=== PATIENT | female | born 1955 | race Caucasian/White ===

== ENCOUNTER 2017-06-01 08:01 | Outpatient (CLI) | payer OTHER | END 2017-06-01 08:02 | disposition home or self-care (01) | LOC: BICCT 08:01 | PROVIDERS: ATTEND Internal Medicine Geriatric Medicine | DX: Q60.0 Renal agenesis, unilateral (principal); N28.89 Other specified disorders of kidney and ureter; D35.01 Benign neoplasm of right adrenal gland | CPT/HCPCS: 74176 ==

== ENCOUNTER 2017-06-28 10:55 | Outpatient (CLI) | payer OTHER | END 2017-06-28 10:56 | disposition home or self-care (01) | LOC: BICMAMMO 10:55 | PROVIDERS: ATTEND Internal Medicine Geriatric Medicine | DX: Z12.31 Encounter for screening mammogram for malignant neoplasm of breast (principal) | CPT/HCPCS: 77063; 77067 ==

== ENCOUNTER 2017-07-05 19:30 | Outpatient (CLI) | payer OTHER | END 2017-07-05 19:31 | disposition home or self-care (01) | LOC: SLEEPLAB 19:30 | PROVIDERS: ATTEND Internal Medicine Geriatric Medicine | DX: G47.33 Obstructive sleep apnea (adult) (pediatric) (principal); E66.9 Obesity, unspecified; I10 Essential (primary) hypertension | CPT/HCPCS: 95810 ==

== ENCOUNTER 2018-10-12 13:44 | Outpatient (CLI) | payer OTHER ==
--- NOTE | 2018-10-12 14:14 | MMO ---
Bilateral MAMMO Bilat Screen [facility]. CLINICAL HISTORY: Patient is 62 years old and is seen for screening. The patient has no family history of breast cancer. The patient has no personal history of cancer. VIEWS: The views performed were: bilateral craniocaudal with tomosynthesis and bilateral mediolateral oblique with tomosynthesis. FILMS COMPARED: The present examination has been compared to prior imaging studies performed at [facility] on 06/28/2017, and at [facility] on 01/12/2007, 02/07/2009 and 10/09/2012. MAMMOGRAM FINDINGS: There are scattered fibroglandular densities. There are no suspicious masses, suspicious calcifications, or new areas of architectural distortion. IMPRESSION: THERE IS NO MAMMOGRAPHIC EVIDENCE OF MALIGNANCY. A ROUTINE FOLLOW-UP MAMMOGRAM IN 1 YEAR IS RECOMMENDED. THE RESULTS OF THIS EXAM WERE SENT TO THE PATIENT. ACR BI-RADS Category 1 - Negative MAMMOGRAPHY NOTE: 1. A negative mammogram report should not delay a biopsy if a dominant of clinically suspicious mass is present. 2. Approximately 10% to 15% of breast cancers are not detected by mammography. 3. Adenosis and dense breasts may obscure an underlying neoplasm.
== END 2018-10-12 13:45 | disposition home or self-care (01) ==
LOC: BICMAMMO 13:44
PROVIDERS: ATTEND Internal Medicine Geriatric Medicine
DX: Z12.31 Encounter for screening mammogram for malignant neoplasm of breast (principal)
CPT/HCPCS: 77063; 77067

== ENCOUNTER 2020-03-04 14:53 | Emergency (ER) | payer OTHER ==
[2020-03-04 18:04] LABS: #Basophils 0.1 thou/uL (0.0-0.2); #Eosinphils 0.1 thou/uL (0.0-0.7); #Lymphocytes 1.8 thou/uL (1.20-3.40); #Monocytes 0.8 thou/uL (0.11-0.59); #Neutrophils 4.3 thou/uL (1.40-6.50); %Basophils 0.8 % (0.0-1.0); %Eosinophils 1.9 % (0.0-10.0); %Lymphocytes 25.3 % (21.0-51.0); Hemoglobin 11.5 g/dL (12.0-16.0); Mean Corpuscular HGB CONC 32.7 g/dL (32.0-36.0); Mean Corpuscular Hemoglobin 30.4 pg (27.0-31.0); Mean Platelet Volume 7.2 fL (7.4-10.4); Platelet Count 386 thou/uL (130-400); RBC Distribution Width 11.6 % (11.5-14.5); Red Blood Cell (RBC) Count 3.78 mill/uL (4.20-5.40); White Blood Cell (WBC) Count 7.1 thou/uL (4.8-10.8)
[2020-03-04 18:25] LABS: ALT (SGPT) 14 U/L (8-55); AST (SGOT) 14 U/L (5-34); Albumin 3.2 g/dL (3.4-4.8); Alkaline Phosphatase 121 U/L (40-110); Anion Gap 12 mmol/L (10-20); BUN (Urea Nitrogen) 7 mg/dL (9.8-20.1); Bilirubin, Total 0.2 mg/dL (0.2-1.2); Calc. Creatinine Clearance 0 mL/min (70-130); Calcium 8.6 mg/dL (7.8-10.44); Carbon Dioxide 28 mmol/L (23-31); Chloride 101 mmol/L (98-107); Estimated GFR-MDRD 63; Globulin 3.6 g/dL (2.4-3.5); Glucose 106 mg/dL (80-115); Protein, Total 6.8 g/dL (6.0-8.3); Sodium 138 mmol/L (136-145)
[2020-03-04 18:30] LABS: Potassium 2.8 mmol/L (3.5-5.1)
[2020-03-04] MEDS ORDERED: Potassium Chloride 20 MEQ TAB ONE (18:45)
--- NOTE | 2020-03-04 20:00 | RAD ---
LEFT ANKLE THREE VIEWS: 03/04/20 HISTORY: Left ankle pain and swelling and redness. FINDINGS/IMPRESSION: The ankle mortise is maintained. Soft tissue swelling is present. No fracture, dislocation, or bony d estruction identified. A small plantar calcaneal spur is present. POS: MZA
--- NOTE | 2020-03-04 20:02 | RAD ---
RIGHT FOOT THREE VIEWS: 03/04/20 HISTORY: Right big toe swelling and pain and redness. FINDINGS/IMPRESSION: No fracture or dislocation is seen. There is soft tissue swelling in the right great toe. A focal hyp odensity at the medial base of the proximal phalanx of the great toe is suspicious for an erosion. Po ssibility of osteomyelitis should be considered. POS: LENA
== END 2020-03-04 18:59 | disposition home or self-care (01) ==
LOC: ERS 14:53
DX: M25.472 Effusion, left ankle (principal); M79.674 Pain in right toe(s); E87.6 Hypokalemia; I10 Essential (primary) hypertension; F32.9 Major depressive disorder, single episode, unspecified; Z79.899 Other long term (current) drug therapy
CPT/HCPCS: 36415; 80053; 84550; 85025; 93005

== ENCOUNTER 2020-04-21 14:25 | Inpatient (IN) | payer MEDICARE, OTHER ==
[2020-04-21] MEDS ORDERED: Fentanyl 100 MCG/2 ML VIAL ONE ×3 (14:48→21:13)
[2020-04-21] MEDS ORDERED: Acetaminophen 500 MG TAB ONE (14:49)
[2020-04-21] MEDS ORDERED: Ondansetron PF 4 MG/2 ML Vial ONE ×3 (14:50→21:13)
[2020-04-21 15:58] LABS: Hemoglobin 9.1 g/dL (12.0-16.0); Mean Corpuscular HGB CONC 31.4 g/dL (32.0-36.0); Mean Corpuscular Volume 92.4 fL (78.0-98.0); Mean Platelet Volume 7.9 fL (7.4-10.4); Platelet Count 307 thou/uL (130-400); RBC Distribution Width 14.9 % (11.5-14.5); Red Blood Cell (RBC) Count 3.15 mill/uL (4.20-5.40); White Blood Cell (WBC) Count 8.6 thou/uL (4.8-10.8)
[2020-04-21 16:15] LABS: Band 9 % (5-11); Lymphocytes 24 % (21-51); MDiff Complete? YES; Monocytes 16 % (0-10); Neutrophil 51 % (42-75); Platelet Morphology Comment Appears Adequate; Polychromasia SLIGHT = 2-3 cells (100X) (0-2/hpf)
[2020-04-21 16:20] LABS: ALT (SGPT) 8 U/L (8-55); AST (SGOT) 9 U/L (5-34); Albumin 2.6 g/dL (3.4-4.8); Alkaline Phosphatase 103 U/L (40-110); Anion Gap 14 mmol/L (10-20); BUN (Urea Nitrogen) 12 mg/dL (9.8-20.1); Bilirubin, Total 0.4 mg/dL (0.2-1.2); Calc. Creatinine Clearance 0 mL/min (70-130); Calcium 7.9 mg/dL (7.8-10.44); Carbon Dioxide 22 mmol/L (23-31); Chloride 103 mmol/L (98-107); Globulin 3.1 g/dL (2.4-3.5); Glucose 108 mg/dL (80-115); Potassium 4.3 mmol/L (3.5-5.1); Protein, Total 5.7 g/dL (6.0-8.3); Sodium 135 mmol/L (136-145)
[2020-04-21] MEDS ORDERED: Ondansetron PF 4 MG/2 ML Vial IVP PRN (21:15)
[2020-04-21] MEDS ORDERED: Sodium Chloride 0.9% 1,000 ML IV SCH (21:15)
[2020-04-21] MEDS ORDERED: Ondansetron ODT 4 MG TAB SL PRN (21:15)
[2020-04-21] MEDS: Fentanyl 100 MCG/2 ML VIAL SLOW IVP PRN (21:20)
[2020-04-21] MEDS ORDERED: Piperacillin/Tazobactam 3.375 GM in Sodium Chloride 0.9% 100 ML IVPB SCH (22:00)
[2020-04-21] MEDS ORDERED: Acetaminophen 325 MG TAB PO PRN (22:14)
[2020-04-21] MEDS ORDERED: Acetaminophen 650 MG Suppository PR PRN (22:14)
--- NOTE | 2020-04-21 22:39 | PDOC.HHP ---
Hospitalist HPI - History of Present Illness pain on the feet, gi bleeding History of Present Illness: Case of an 64y/o female with a pmhx of hth who comes to hospital due to b/l leg pain and gi bleeding. most of the history is given by patient was in distress and was given pain management and now feels she cant answer questions. states that abount 5-6 months ago patient started with symptoms of pain on the legs and gi bleeding. at that time they had a visit to the ED and patient was diagnosed with colitis and gout and discharge home to f/u with pcp and gi as opd. patient is schedule to have a colonoscopy on 2019. states that since then patient symptoms have continued to progress and got worse, what initialled as a red dot expanded to a blister sometimes filled with blood and then pop and became an ulcer. this has happened in both legs and is causing severe pain. also reports that patient has continued with gi bleeding which is bright red blood, any food ingestion causes to go to the bathroom wich has streaks of blood. they report low grade fevers, no nausea no vomiting no cough or dysuria. Hospitalist ROS - Review of Systems All other systems reviewed; all pertinent +/- noted in HPI/Subj - Medication Medications: Active Medications Generic Name Dose Route Start Last Admin Trade Name Freq PRN Reason Stop Dose Admin Fentanyl 50 mcg 04/21/20 21:05 04/21/20 21:20 Fentanyl 100 Mcg/2 Ml Vial SLOW IVP 04/22/20 05:33 50 mcg Q2H PRN Administration Severe Pain (7-10) Ondansetron HCl 4 mg 04/21/20 21:15 04/21/20 21:20 Ondansetron Pf 4 Mg/2 Ml Vial IVP 04/22/20 05:33 4 mg Q6H PRN Administration Nausea/Vomiting Hospitalist History - Past Surgical History Past Surgical History: reports: Cholecystectomy, - Family History Family History: reports: no pertinent history - Social History Smoking Status: Never smoker Alcohol: reports: Occassional Drugs: reports: none - Exam General Appearance: ill appearing Eye: PERRL, anicteric sclera ENT: normocephalic atraumatic, no oropharyngeal lesions, moist mucosa Neck: supple, symmetric, no JVD, no thyromegaly Heart: RRR, no murmur, no gallops, no rubs Respiratory: CTAB, no wheezes, no rales, no ronchi Gastrointestinal: soft, non-distended, normal bowel sounds, no palpable masses, tender to palpation Extremities - other findings: b/l bullae some filled with blood, some rupture making ulcers Skin: normal turgor, no rashes Neurological: cranial nerve grossly intact, normal sensation to touch, no weakness, no focal deficits Musculoskeletal: normal tone, normal strength, no muscle wasting Psychiatric: normal affect, normal behavior, A&O x 3 Hospitalist Results - Labs Result Diagrams: 04/21/20 15:10 04/21/20 15:10 Lab results: WBC 8.6 thou/uL (4.8-10.8) 04/21/20 15:10 Hgb 9.1 g/dL (12.0-16.0) L 04/21/20 15:10 Hct 29.1 % (36.0-47.0) L 04/21/20 15:10 MCV 92.4 fL (78.0-98.0) 04/21/20 15:10 Plt Count 307 thou/uL (130-400) 04/21/20 15:10 Band Neuts % (Manual) 9 % (5-11) 04/21/20 15:10 Sodium 135 mmol/L (136-145) L 04/21/20 15:10 Potassium 4.3 mmol/L (3.5-5.1) 04/21/20 15:10 Chloride 103 mmol/L (98-107) 04/21/20 15:10 Carbon Dioxide 22 mmol/L (23-31) L 04/21/20 15:10 BUN 12 mg/dL (9.8-20.1) 04/21/20 15:10 Creatinine 0.81 mg/dL (0.6-1.1) 04/21/20 15:10 Glucose 108 mg/dL (80-115) 04/21/20 15:10 Lactic Acid 1.1 mmol/L (0.5-2.2) 04/21/20 15:10 Calcium 7.9 mg/dL (7.8-10.44) 04/21/20 15:10 Total Bilirubin 0.4 mg/dL (0.2-1.2) 04/21/20 15:10 AST 9 U/L (5-34) 04/21/20 15:10 ALT 8 U/L (8-55) 04/21/20 15:10 Alkaline Phosphatase 103 U/L (40-110) 04/21/20 15:10 Serum Total Protein 5.7 g/dL (6.0-8.3) L 04/21/20 15:10 Albumin 2.6 g/dL (3.4-4.8) L 04/21/20 15:10 Hospitalist H&P A/P - Problem (1) GI bleeding Code(s): K92.2 - GASTROINTESTINAL HEMORRHAGE, UNSPECIFIED Status: Acute (2) Cellulitis Code(s): L03.90 - CELLULITIS, UNSPECIFIED Status: Acute (3) HTN (hypertension) Code(s): I10 - ESSENTIAL (PRIMARY) HYPERTENSION Status: Acute - Plan Plan: case of an 64y/o female with the stated pmhx who presents due to blister on her legs and gi bleeding gi bleeding - npo - ppis q 12hr - had a ct on 09/2019 that showed sigmoid colitis - 09/2019 hg at 13 now presents with 9 and hx of continued gi bleed - due to rare lesions on legs i would consider colitis as highly suspected for Ulcerative colitis - check hg q 8hrs - GI consult cellulits / bullous pemphigoid - lesions very suspecious for bullous pemphigoid - consider a integrative medicine physician evaluation if available in the hospital - will cover with doxycycline wich should cover for cellulitis and also used for the treatment of bullous pemphigoid - will also cover with vancomycin - reported association between bullous pem and UC - will start topical steroid bid - wound care evaluation - foot xrs showed soft tissue swelling, no osseous involvement - pain management htn - pt with systolic b/p in the low 100s systolic will hold medication for now.
[2020-04-21] MEDS ORDERED: Sodium Chloride 0.9% (PF) 10 ML VIAL FS PRN (22:45)
[2020-04-22] MEDS: Sodium Chloride 0.9% 1,000 ML IV SCH ×2 (00:11→18:45)
[2020-04-22] MEDS ORDERED: Fentanyl 100 MCG/2 ML VIAL ONE ×6 (00:27→16:57)
[2020-04-22] MEDS: Fentanyl 100 MCG/2 ML VIAL SLOW IVP PRN ×5 (00:31→23:55)
[2020-04-22 06:22] LABS: #Basophils 0.1 thou/uL (0.0-0.2); #Lymphocytes 1.4 thou/uL (1.20-3.40); #Monocytes 1.1 thou/uL (0.11-0.59); #Neutrophils 6.3 thou/uL (1.40-6.50); %Basophils 0.8 % (0.0-1.0); %Eosinophils 0.2 % (0.0-10.0); %Lymphocytes 15.6 % (21.0-51.0); %Neutrophils 71.5 % (42.0-75.0); Hemoglobin 7.3 g/dL (12.0-16.0); Mean Corpuscular HGB CONC 31.3 g/dL (32.0-36.0); Mean Corpuscular Hemoglobin 29.2 pg (27.0-31.0); Mean Corpuscular Volume 93.1 fL (78.0-98.0); Mean Platelet Volume 7.6 fL (7.4-10.4); Platelet Count 354 thou/uL (130-400); RBC Distribution Width 14.9 % (11.5-14.5); Red Blood Cell (RBC) Count 2.48 mill/uL (4.20-5.40); White Blood Cell (WBC) Count 8.8 thou/uL (4.8-10.8)
[2020-04-22 06:49] LABS: ALT (SGPT) Less than 7 U/L (8-55); AST (SGOT) 11 U/L (5-34); Albumin 2.3 g/dL (3.4-4.8); Alkaline Phosphatase 92 U/L (40-110); Anion Gap 15 mmol/L (10-20); BUN (Urea Nitrogen) 8 mg/dL (9.8-20.1); Bilirubin, Total 0.4 mg/dL (0.2-1.2); Calc. Creatinine Clearance 0 mL/min (70-130); Calcium 7.7 mg/dL (7.8-10.44); Carbon Dioxide 20 mmol/L (23-31); Chloride 105 mmol/L (98-107); Glucose 129 mg/dL (80-115); Potassium 3.9 mmol/L (3.5-5.1); Protein, Total 5.3 g/dL (6.0-8.3); Sodium 136 mmol/L (136-145)
[2020-04-22 08:48] LABS: SARS-CoV-2 MS2 Positive; SARS-CoV-2 N Gene Negative; SARS-CoV-2 S Gene Negative; SARS-CoV-2 by NAA Not Detected (NotDetected); SARS-CoV-2 orf1ab Negative
--- NOTE | 2020-04-22 09:22 | PDOC.HOSPP ---
- Subjective Encounter Date: 04/22/20 - Objective Result Diagrams: 04/22/20 06:02 04/22/20 06:02 Hospitalist ROS - Medication Medications: Active Medications Generic Name Dose Route Start Last Admin Trade Name Freq PRN Reason Stop Dose Admin Fentanyl 25 mcg 04/21/20 22:41 04/22/20 08:29 Fentanyl 100 Mcg/2 Ml Vial SLOW IVP 25 mcg Q2H PRN Administration Pain Sodium Chloride 1,000 mls @ 60 mls/hr 04/21/20 22:15 04/22/20 00:11 Normal Saline 0.9% IV 1,000 mls .[id number] Administration
--- NOTE | 2020-04-22 10:19 | PRG ---
DATE OF SERVICE: 04/22/2020 CONSULTATION: On the case, Gastroenterology, Dr. Carl Urrutia. PRIMARY CARE PHYSICIAN: Dr. Anthony. SUBJECTIVE: The patient was seen and evaluated at bedside. Complains of nausea and vomiting noted. Antiemetics have been advised. The patient also complains of right foot pain. OBJECTIVE: GENERAL: The patient not in acute distress, complaining of nausea. VITAL SIGNS: Blood pressure 143/68 mmHg, heart rate of 105 per minute, respiratory rate of 16 per minute, and saturation of 100% on room air. She has an airway which is clear. HEENT: Atraumatic and normocephalic. NECK: Supple. No bruits. No lymphadenopathy. CV: S1 and S2. Regular rhythm. No murmurs. CHEST: Bilateral air entry present. No rhonchi. No wheeze. ABDOMEN: Soft and nontender. Bowel sounds are present. No tenderness noted. EXTREMITIES: The patient's right foot shows evidence of cellulitis associated with suspected necrotizing fasciitis. NEURO: The patient is alert and oriented x3. No focal motor or sensory deficits noted. HEME: No ecchymosis or petechiae. PSYCH: No depression. Normal mood. DIAGNOSTIC STUDIES: WBC is 8.8; hemoglobin 7.3, baseline was 9.1 on 04/21/2020; and platelet count is 354. No left shift noted. Sodium 136, potassium 3.9, chloride 105, carbon dioxide 20, BUN 8, and creatinine 0.85. Lactic acid is normal at 1.1. AST 11 and ALT 7. SARS-CoV-2 PCR analysis done, nondetected. ASSESSMENT: 1. Acute gastrointestinal bleed, likely lower gastrointestinal in nature. The patient currently on pantoprazole 40 mg twice daily. Gastroenterology, Dr. Carl Urrutia has been consulted. The patient is awaiting official evaluation, possible colonoscopy. 2. Right foot cellulitis with suspicion for necrotizing fasciitis. The patient on IV antibiotics and I have consulted [facility] for further evaluation of this lesion. 3. Benign essential hypertension, well controlled. 4. History of gout. 5. History of sigmoid colitis. The patient had a CT scan done in September 2019, which confirmed the same treated at that point of time. On 04/22/2020, plan of care, we have consulted [facility]ology Services at this point of time. We will follow official recommendations, possible colonoscopy today. The patient's right foot lesion suspicion for possibility of bullous pemphigoid versus necrotizing fasciitis with cellulitis features on antibiotics that includes doxycycline. The patient will also be evaluated for ulcerative colitis because of the said lesion. We have advised about antiemetic treatment, symptomatic management, IV hydration, keep the patient n.p.o. at this point of time. Discharge plan will depend on treatment plan and symptom resolution. The patient's hemoglobin is stabilized and right foot cellulitis is resolving. Discharge plan will be made based on improvement of the above. Job ID: [id number]
[2020-04-22] MEDS: Pantoprazole 40 MG VIAL IVP SCH ×2 (10:45→20:46)
[2020-04-22] MEDS ORDERED: Pantoprazole 40 MG VIAL ONE (10:47)
[2020-04-22] MEDS ORDERED: Ondansetron PF 4 MG/2 ML Vial ONE ×2 (11:46→11:58)
[2020-04-22] MEDS ORDERED: Morphine 2 MG/ML VIAL ONE (11:47)
[2020-04-22] MEDS: Ondansetron PF 4 MG/2 ML Vial IVP PRN ×2 (11:54→23:08)
[2020-04-22] MEDS ORDERED: HYDROmorphone 0.5 MG/0.5 ML SYRINGE ONE (11:56)
[2020-04-22] MEDS ORDERED: PROPOFOL 200 MG/20 ML VIAL ONE (11:58)
[2020-04-22] MEDS ORDERED: PHENYLEPHRINE-NS 100 MCG/ML 10 ML SYRINGE ONE (11:58)
[2020-04-22] MEDS ORDERED: HYDROmorphone 0.5 MG/0.5 ML SYRINGE SLOW IVP PRN (12:04)
[2020-04-22] MEDS ORDERED: Acetaminophen 325 MG TAB ONE (13:25)
[2020-04-22] MEDS ORDERED: Acetaminophen 500 MG TAB PO PRN (13:27)
[2020-04-22] MEDS ORDERED: Ibuprofen 600 MG TAB PO PRN (13:27)
--- NOTE | 2020-04-22 14:05 | CON ---
DATE OF CONSULTATION: HISTORY OF PRESENT ILLNESS: Shakila Luna is a 64-year-old female, treated for a month with prednisone for gout due to the diagnosis of right toe. She presented to the emergency room at [facility] several weeks ago and followed up with Dr. Murphy who extended her prednisone treatment. The patient presents today with worsening pain over the dorsum of her foot with a bullae, large blister, and severe infection in her right toe involving the interphalangeal joint. X-rays do not reveal osteomyelitis. She also has a deep wound, tender, red over her left anterior lateral ankle. She has a fever to 102 degrees. White count is 8.6, hemoglobin 9.1. Basic metabolic profile is normal. Glucose is 108. COVID negative. She is admitted to the hospitalist service on doxycycline and vancomycin. Blood cultures are negative to date. She has been on ER hold since yesterday afternoon. ALLERGIES: MORPHINE AND SULFA. MEDICATIONS: 1. Antihypertensive at home. 2. Metoprolol 25 mg twice a day. 3. Prednisone 10 mg once a day. 4. Tylenol Extra Strength p.r.n. pain. SOCIAL HISTORY: Tobacco, none. Alcohol, none. She is . Her is with her. PAST SURGICAL HISTORY: Cholecystectomy, . FAMILY HISTORY: Noncontributory. REVIEW OF SYSTEMS: Ten-point noncontributory. She is up to date on her colonoscopies. PHYSICAL EXAMINATION: VITAL SIGNS: Weight 75 kilograms, blood pressure 115/55, oxygen saturation 100% on room air, heart rate 75. LUNGS: Clear to auscultation. CARDIAC: Regular rate and rhythm. No murmur or gallop. ABDOMEN: Soft, nontender, and slightly obese. EXTREMITIES: Palpable femoral, popliteal, and pedal pulses. Over the right dorsum of her foot, there is a large 4.5 cm blister that was unroofed and there was some macerated tissue beneath this about 4 cm. It is purplish and discolored. Over the right great toe, there is a severe infection extending down to the interphalangeal joint when probed. On the left foot anterior lateral ankle, there is a deep wound to the lateral malleolus. It is very tender. ASSESSMENT: Severe infection of the right foot and left foot. I would not recommend amputation of the right first toe through the proximal phalanx, debridement of the right foot and left ankle. Wound Care will be consulted. We would add Zosyn to her antibiotic regimen as well as vancomycin. She has worsened since being in the emergency room. PLAN: Surgical debridement is indicated. She understands the risks and benefits. Job ID: [id number]
[2020-04-22] MEDS ORDERED: Sodium Chloride 0.9% 100 ML ONE (14:46)
[2020-04-22] MEDS ORDERED: Piperacillin/Tazobactam 3.375 GM VIAL ONE (14:46)
[2020-04-22] MEDS ORDERED: Sodium Chloride 0.9% 0 ML ONE (15:32)
[2020-04-22] MEDS ORDERED: Promethazine HCl 25 MG/ML VIAL SLOW IVP PRN (16:10)
[2020-04-22] MEDS ORDERED: HYDROmorphone 2 MG/ML VIAL SLOW IVP PRN (16:10)
[2020-04-22] MEDS ORDERED: Ondansetron HCl/PF 4 MG/2 ML Vial IVP PRN (16:10)
[2020-04-22] MEDS ORDERED: Ketorolac Tromethamine 30 MG/ML VIAL IVP PRN (16:10)
[2020-04-22] MEDS ORDERED: Promethazine HCl 25 MG/ML VIAL IM PRN (16:10)
[2020-04-22] MEDS ORDERED: Promethazine HCl 25 MG/ML VIAL ONE (16:57)
[2020-04-22] MEDS ORDERED: GoLYTELY 4,000 ml Bottle PO SCH ×2 (17:00→20:30)
--- NOTE | 2020-04-22 17:01 | RAD ---
Exam: Chest one view HISTORY:Chest one view Comparison: 10/15/2019 FINDINGS: Lines and tubes: Interval placement of left-sided vascular catheter. Distal tip projects over the reg ion of the superior vena cava. Cardiac silhouette: Normal Aorta: Unremarkable Pulmonary vessels: Normal Costophrenic angles: Clear LUNGS: No masses or consolidation. Pneumothorax: None Osseous abnormalities: None IMPRESSION: 1. No acute cardiopulmonary process 2. Left-sided subclavian vascular catheter. No pneumothorax.
[2020-04-22 19:28] VITALS: BMI 34.7
[2020-04-22] MEDS: Piperacillin/Tazobactam 3.375 GM in Sodium Chloride 0.9% 100 ML IVPB SCH ×2 (19:40→23:56)
[2020-04-22] MEDS: HYDROcodone/Acetaminophen 5/325 mg Tablet PO PRN (19:41)
[2020-04-22] MEDS ORDERED: Enoxaparin Sodium 40 MG/0.4 ML SYRINGE SC SCH (21:00)
[2020-04-22 22:13] LABS: Hemoglobin 8.1 g/dL (12.0-16.0)
--- NOTE | 2020-04-22 22:48 | OP ---
DATE OF PROCEDURE: 04/22/2020 PREOPERATIVE DIAGNOSES: Sigmoid colon mass, gastrointestinal bleeding, anemia, necrotizing infection both feet involving the right great toe, dorsum of right foot, lateral right malleolus, lateral left malleolar area, anemia, poor IV access, sepsis, POSTOPERATIVE DIAGNOSES: Sigmoid colon mass, gastrointestinal bleeding, anemia, necrotizing infection both feet involving the right great toe, dorsum of right foot, lateral right malleolus, lateral left malleolar area, anemia, poor IV access, sepsis, PROCEDURES PERFORMED: 1. Amputation of right great toe and metatarsal. 2. Debridement of 6 x 5 cm wound, dorsum of foot, excising necrotic skin, subcutaneous tissue. 3. Debriding 4.5 to 5 cm diameter wound lateral malleolus area right foot of necrotic skin, underlying purulent material and necrotic subcutaneous tissue. 4. Debridement of 5 cm _infected ulcerated wound left lateral malleolar area, debridement of necrotic skin, evacuation of underlying purulent material and debridement of underlying subcutaneous tissue. 5. Pulse irrigation of all wounds described. 6. Wound Care Team placed wound vacs. 7. Cultures obtained from the right and the left foot. 8. Left subclavian vein triple-lumen catheter because of poor IV access. ANESTHESIA: General. DESCRIPTION OF PROCEDURE: The patient was taken to the operating room, where under general anesthesia, both lower extremities prepared with ChloraPrep and draped in routine fashion. Incision made over the dorsum of the right foot draining a large abscess of copious thick purulent material sent for culture and sensitivity. Necrotic overlying skin debrided sharply unroofing a large area as described, dimensions above. Necrotic subcutaneous tissues debrided down the fascia. A racquet incision was made for amputation of the right great toe and this was carried down to the amputation of the toe and metatarsal. Because of underlying infection, resecting the metatarsal, resecting it proximally with a rongeur and clean connective tissue sharply. Good hemostasis obtained with cautery. There was pulsatile bleeding. Attention was then turned to the lateral malleolar area of right foot where similar debridement of skin and subcutaneous tissue performed for necrotizing infection. Attention then turned to the left foot lateral area where wound debrided of necrotic skin, subcutaneous tissue back to healthy tissue. There was a severe underlying necrotizing infection. Pulse irrigation performed of all wounds. Wound care team arrived to place a wound VAC. Gloves and gowns were changed. Hands washed. Sterile technique used to place a left subclavian vein triple-lumen catheter. ChloraPrep prepped the paraclavicular area and drape applied. An infraclavicular approach used to cannulate the subclavian vein, placing a J-wire and removing it. Seldinger technique used to place the triple-lumen catheter, removing the J-wire, securing the catheter with 3-0 silk sutures and sterile dressing applied. Each port aspirated, blood flushed with saline solution and IV fluid solution. The patient tolerated the procedure well and transferred back to recovery room, then to her room in stable condition. Preoperative hemoglobin of 7. She will be given blood when it is available. Job ID: [id number] MTDD
--- NOTE | 2020-04-23 01:28 | CON ---
DATE OF CONSULTATION: 04/22/2020 REASON FOR CONSULTATION: Hematochezia. CONSULTING PROVIDER: Eve Regalado PA-C HISTORY OF PRESENT ILLNESS: The patient is a 64-year-old female with past medical history of depression, hypertension, migraines, and recent diagnosis of pancreatic exocrine insufficiency, presenting with complaints of bilateral leg pain, bullous/blisters of her bilateral lower extremities, and hematochezia. She states that she was in her usual state of health until approximately 5 months ago when she began having intermittent episodes of hematochezia, characterized as bright red blood per rectum with blood initially seen primarily only on the toilet paper. However, over the next few months, she states that the frequency of this hematochezia increased with darkening of the blood to maroon color and was now peering on both the toilet paper and in the toilet with blood seen coating the stool. She would have these episodes of bleeding, where she might have 1 to 2 days of bleeding and then "go a while" between episodes. During the same time, she was also having increased constipation, having approximately 2 to 3 semi-solid bowel movements per day ([place] 5 to 6) with the sensation of incomplete evacuation and increased straining in order to facilitate defecation, this prompted her to use laxatives to facilitate defecation, but again did not significantly improve her bleeding episodes. During the same time, the patient was seen in the GI clinic in February 2020 with complaints of diarrhea as well as mention of a diagnosis of "colitis" that was diagnosed months ago. At the time that she was seen in the GI clinic, she was having approximately 25 bowel movements per day that were primarily liquid in nature and sometimes seen with an oily sheen. Infectious stool studies were obtained at that time with infectious etiologies negative, but with a severe decrease in pancreatic elastase consistent with pancreatic exocrine insufficiency. She was ultimately placed on pancreatic enzyme supplementation and had improvement for diarrhea, but again continued to have hematochezia. Also of note, the patient had also been complaining of increased dysphagia characterized as the sensation of food getting stuck at the level of the sternal notch and would occur primarily with ingestion of solid foods. Upon speaking with the patient, she states that this would occur around once a month and would sometimes prompt her to induce vomiting in order to relieve the obstruction. She also endorses increased weight loss of approximately 15 pounds over the last one month unintentionally and attributes this to significantly decreased appetite during the same time. Otherwise, she denies any nausea, vomiting, fevers, chills, melena, hematemesis, or odynophagia. REVIEW OF SYSTEMS: A 10-category review of systems was obtained with all responses negative except for the pertinent positives as listed in HPI. PAST SURGICAL HISTORY: Cholecystectomy and . FAMILY HISTORY: Denies any GI malignancies. SOCIAL HISTORY: Denies any tobacco, alcohol, or illicit drug use. OUTPATIENT MEDICATIONS: Reviewed. ALLERGIES: MORPHINE AND SULFA. PHYSICAL EXAMINATION: VITAL SIGNS: Temperature 98.8, pulse 93, blood pressure 103/50, respiratory rate 20, and saturating 98% on room air. GENERAL: The patient was lying in bed, in no acute distress. Alert and oriented x4. HEENT: Normocephalic and atraumatic. NECK: Supple. No JVD or scleral icterus noted. CARDIOVASCULAR: Regular rate and rhythm with no discernible murmurs, gallops, or rubs. RESPIRATORY: Clear to auscultation bilaterally with no discernible wheezes or rales. ABDOMEN: Normoactive bowel sounds. Soft, nontender, and nondistended. EXTREMITIES: Mild edema of the bilateral lower extremities extending up to the knees. Dressings were in place after her surgery earlier today with the dressings clean, dry, and intact. LABORATORY DATA: CBC with a white blood cell count of 8.8, hemoglobin 7.3, hematocrit 23.1, and platelets 354. Chemistry with a sodium of 136, potassium 3.9, chloride 105, CO2 of 20, BUN 8, creatinine 0.85, glucose 129, AST 11, ALT less than 7, alkaline phosphatase 92, total bilirubin 0.4, and albumin 2.3. IMAGING DATA: EGD was performed on May 26, 2016, that showed a benign-appearing intrinsic stenosis at the gastroesophageal junction, which was then intervened upon with Young dilator to 18 mm. Otherwise, the gastric mucosa and duodenum were normal. Colonoscopy was performed on May 26, 2016, which showed severe diverticulosis in the sigmoid, descending and transverse colon. A 4-mm polyp was found in the descending colon and completely removed with pathology being read as a tubular adenoma. A 7-mm polyp was seen in the sigmoid colon, but read as hyperplastic polyp. There was no mention of internal or external hemorrhoids. ASSESSMENT AND PLAN: The patient is a 64-year-old female with a past medical history of depression, hypertension, migraines, pancreatic exocrine insufficiency, presenting with worsening dysphagia and hematochezia. Hematochezia: The patient is presenting with a 5-month history of intermittent episodes of hematochezia characterized as bright red blood per rectum that was initially seen only on the toilet paper, but now present in both the toilet paper and in the stool. On review of the patient's chart, there is some mention of a CT scan obtained earlier this year that showed colitis within the distal colon and when being seen in the GI Clinic had plans to perform a colonoscopy for further evaluation of this GI bleeding (the patient was scheduled for May 02, 2020). However, at this time, the patient is now presenting with a significantly decreased H and H in addition to continued hematochezia consistent with gastrointestinal blood loss. Differential could include ischemic colitis, inflammatory bowel disease, arteriovenous malformation/Dieulafoy lesion, stercoral colitis and/or gastrointestinal neoplasm with the concurrent diagnosis of bullous pemphigus, it is also concerning for possible paraneoplastic syndrome. RECOMMENDATIONS: 1. We would continue to trend her H and H and transfuse as necessary to maintain an H and H of 7/21. 2. Continue to monitor clinically for signs of active gastrointestinal bleeding. 3. We would place the patient on a clear liquid diet today with plans for GoLYTELY prep tonight and colonoscopy tomorrow. 4. We would avoid any anticoagulation for the time being in light of possible active gastrointestinal bleeding. 5. Further recommendations to follow endoscopy. Dysphagia: The patient is also presenting with progressively worsening dysphagia over the last few months that at times has prompted her to induce vomiting in order to relieve a food bolus obstruction. 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 She is not currently on any acid reflux medications making recurrence of her stricture more likely. RECOMMENDATIONS: 1. We would make the patient n.p.o. at midnight in preparation for upper endoscopy tomorrow for further evaluation. 2. We can administer clear liquid diet until then. 3. We will continue to follow. Please call with any questions. Job ID: [id number]
[2020-04-23] MEDS: Fentanyl 100 MCG/2 ML VIAL SLOW IVP PRN ×3 (02:57→20:29)
[2020-04-23] MEDS: Piperacillin/Tazobactam 3.375 GM in Sodium Chloride 0.9% 100 ML IVPB SCH ×4 (05:40→23:37)
[2020-04-23] MEDS: Sodium Chloride 0.9% 1,000 ML IV SCH ×2 (05:41→22:10)
--- NOTE | 2020-04-23 06:13 | CON ---
DATE OF CONSULTATION: ADDENDUM: Ms. Shakila Luna, review of her records reveals that in September, she presented to the emergency room for blood per stool and abdominal discomfort and change in her bowel habits. CAT scan of the abdomen and pelvis reveals segment of sigmoid colon narrowing with possible colitis. Colonoscopy was recommended. The patient apparently saw Gastroenterology and had a colonoscopy scheduled at a later time, but that was canceled for some reason. is unsure why. The patient later presented in February to the emergency room and had pain in her right great toe, and some induration and pain in her left lateral ankle, right lateral ankle. X-rays were normal. Findings, uric acid was elevated. Suspect this was her first episode of gout. She was treated with steroids. Just prior to this, she was given Cipro and Flagyl orally by GI, thinking her GI problem may have been a colitis and colonoscopy was scheduled for the future. The patient, however, worsened and before her colonoscopy was scheduled next week, she presented to the emergency room with the current problem. Job ID: [id number]
[2020-04-23] MEDS: Ondansetron PF 4 MG/2 ML Vial IVP PRN (06:41)
[2020-04-23 07:38] LABS: #Lymphocytes 1.1 thou/uL (1.20-3.40); #Monocytes 0.7 thou/uL (0.11-0.59); #Neutrophils 3.8 thou/uL (1.40-6.50); %Basophils 0.7 % (0.0-1.0); %Eosinophils 0.5 % (0.0-10.0); %Lymphocytes 19.1 % (21.0-51.0); %Monocytes 12.7 % (0.0-10.0); Hemoglobin 7.2 g/dL (12.0-16.0); Mean Corpuscular HGB CONC 32.2 g/dL (32.0-36.0); Mean Corpuscular Hemoglobin 30.3 pg (27.0-31.0); Mean Platelet Volume 8.1 fL (7.4-10.4); Platelet Count 288 thou/uL (130-400); RBC Distribution Width 15.5 % (11.5-14.5); Red Blood Cell (RBC) Count 2.37 mill/uL (4.20-5.40); White Blood Cell (WBC) Count 5.7 thou/uL (4.8-10.8)
[2020-04-23 08:12] LABS: ALT (SGPT) 18 U/L (8-55); AST (SGOT) 47 U/L (5-34); Albumin 1.9 g/dL (3.4-4.8); Alkaline Phosphatase 120 U/L (40-110); Anion Gap 18 mmol/L (10-20); BUN (Urea Nitrogen) 9 mg/dL (9.8-20.1); Bilirubin, Total 0.3 mg/dL (0.2-1.2); Calc. Creatinine Clearance 94 mL/min (70-130); Calcium 7.6 mg/dL (7.8-10.44); Carbon Dioxide 17 mmol/L (23-31); Chloride 108 mmol/L (98-107); Globulin 3.3 g/dL (2.4-3.5); Glucose 102 mg/dL (80-115); Potassium 3.7 mmol/L (3.5-5.1); Protein, Total 5.2 g/dL (6.0-8.3); Sodium 139 mmol/L (136-145)
[2020-04-23] MEDS ORDERED: PROPOFOL 200 MG/20 ML VIAL ONE (09:19)
[2020-04-23] MEDS ORDERED: ALPRAZolam 0.5 MG TAB PO PRN (09:49)
[2020-04-23] MEDS: Pantoprazole 40 MG VIAL IVP SCH ×2 (09:53→20:31)
[2020-04-23] MEDS: HYDROcodone/Acetaminophen 5/325 mg Tablet PO PRN ×2 (09:54→16:47)
--- NOTE | 2020-04-23 10:56 | PRG ---
DATE OF SERVICE: 04/23/2020 CONSULTATIONS: On the case, Dr. Phil Shelton, General Surgery. TIME OF SERVICE: 9:00 a.m. SUBJECTIVE: The patient was seen and evaluated at bedside. The patient is status post surgical intervention with debridement and amputation of the patient's right toe along with debridement and irrigation of the patient's necrotizing fasciitis of both foot. Status post sigmoidoscopy. OBJECTIVE: VITAL SIGNS: The patient is alert and oriented. Postsurgical pain noted. T-max of 100.7 degrees Fahrenheit has been seen, heart rate of 98, respiratory rate of 15, saturation of 94%, and blood pressure of 134/79 mmHg. Has an airway which is clear. HEENT: Atraumatic and normocephalic. NECK: Supple. No bruit. No lymphadenopathy. CV: S1 and S2. No abnormal rhythms or murmurs. CHEST: Bilateral air entry present. No rhonchi. No wheeze. ABDOMEN: Soft and nontender. Bowel sounds are present. EXTREMITIES: No cyanosis. Cellulitis with necrotizing fasciitis status post debridement and irrigation with wound VAC placement noted. HEME: No ecchymosis or petechiae. PSYCH: No depression. DIAGNOSTICS STUDIES: WBC is 5.7, hemoglobin 7.2, hematocrit 22.3, and platelets are 288. Sodium 139, potassium 3.9, chloride 108, carbon dioxide 17, BUN 9, and creatinine 0.78. AST 47 and ALT 18. SARS-CoV-2 PCR negative. Blood culture sensitivities currently pending, no growth noted along with wound cultures. ASSESSMENT: 1. Right foot cellulitis with bilateral necrotizing fasciitis status post irrigation and debridement with wound VAC placement. The patient currently on IV antibiotics and Infectious Disease has also been consulted. The patient is status post amputation and debridement procedure. 2. Acute lower gastrointestinal bleeding with a suspicion for sigmoid mass. The patient currently being evaluated by Gastroenterology Services. Awaiting official report. 3. Benign essential hypertension. 4. History of gout. 5. History of diverticulosis. 6. Acute blood loss anemia. The patient currently has typed and cross-matched and 2 units of PRBCs are in reserve. PLAN: Discussed in detail about the diagnosis, treatment, and followup with the patient as well as the patient's including the patient's daughter. We have advised about continued antibiotic care, culture followup. I will further discuss with Surgical Services in regard to the patient's colonoscopy evaluation and suspicion for a sigmoid lesion. Long-term prognosis is guarded at this point of time. Discharge planning will depend on further hospital course. Job ID: [id number]
--- NOTE | 2020-04-23 13:58 | CON ---
DATE OF CONSULTATION: 04/23/2020 REASON FOR CONSULTATION: Skin abscesses and colitis. HISTORY OF PRESENT ILLNESS: A 64-year-old who has a history of hypertension, who in July started having hematochezia. Because of the COVID pandemic, she could not get ready access to medical care and apparently had a phone conversation with somebody in GI Clinic and was given a prescription for antibiotics, Cipro and Flagyl, which she took for a few days with maybe some improvement. Subsequently, she developed an area of inflammatory change in the right foot involving the metatarsophalangeal joint skin site with erythema, pustule formation, and pain. She was seen by her primary physician and treated as gout with prednisone for 15 days. According to the patient, there was complete resolution of the inflammatory changes. After the completion of the 2 weeks, the prednisone was stopped, and subsequently, there was a recrudescence of the inflammatory process, and this time, she also noticed a lesion in the dorsal midfoot region and the ankle as well. The patient continued to have hematochezia and was noticed to be anemic, had a few more course of antimicrobials and was scheduled for a colonoscopy, but because of the changes in the feet, she was admitted. After admission, she had debridement of the areas by Dr. Shelton. She had amputation of the right first toe. She did have a low-grade temperature elevation. No visual symptoms. Some sore throat. No dental pain. No back pain. No respiratory symptoms. No abdominal pain. PAST MEDICAL HISTORY: Hypertension. She had been diagnosed with gout, but I find the diagnosis is questionable. PAST SURGICAL HISTORY: Cholecystectomy, . SOCIAL HISTORY: Never smoker. . Drinks occasionally. ALLERGIES: MORPHINE, MOSTLY CEO SIDE EFFECTS, AND SULFA DRUGS WITH RASH. MEDICATIONS: 1. Had been on prednisone 10 mg once a day, it is not clear how long she had been taking this. 2. Metoprolol. PHYSICAL EXAMINATION: VITAL SIGNS: T-max 100.7, it is now 98.6. BP 130/80, heart rate 87, respiratory rate 16, O2 saturation 99. SKIN: I was able to see the progression of her skin lesions and she had initially this right first MTP skin site with the swelling, the erythema, and there was a central area of pustule formation, and then she had this large blister in the dorsal midfoot region, medial aspect, right side, which ruptured and then left this exposed area of red tissue, and then there was another one in the lateral aspect of the right ankle. No lymphadenopathy. HEENT: Ocular movements are conjugate. Oral cavity shows teeth in excellent shape. NECK: Supple. No jugular venous distention. No carotid bruits. LUNGS: Symmetric. Clear breath sounds. HEART: S1 and S2, regular rate. No S3 or S4. ABDOMEN: Soft. Not distended or tender. No ascites. No bladder distention. EXTREMITIES: No other joint inflammatory process noted. No edema. Pulses are excellent in lower extremities. NEUROLOGIC: Nonfocal including cognitive function. LABORATORY DATA: White cell count 8.6 and 5.7, hemoglobin 9.1 and 7.2, MCV is 94, platelets are normal. Differential was not particularly remarkable. She does have some monocytosis. Chemistry with sodium 135, creatinine was 0.81 and has remained stable. Initial transaminases and alkaline phosphatase normal, bilirubin 0.4, albumin 2.6. SARS-CoV-2 PCR negative. From the surgical debridements done yesterday, we have some samples. The Gram stain showed no organisms and a few WBCs. The other sample with similar findings with no organisms and moderate WBCs. Two sets of blood cultures pending at this time. She happens to be on Zosyn, doxycycline, clobetasol, hydrocodone. IMAGING: There is a chest x-ray from admission with a left-sided subclavian vascular catheter. No acute cardiopulmonary process seen. There is an abdomen and pelvis CT from September 2019, which showed sigmoid colitis, mass was felt to be less likely. ASSESSMENT: 1. Sigmoid colitis, probably a form of inflammatory bowel disease, either ulcerative colitis or Crohn disease. 2. Inflammatory lesions in the skin of the right foot, associated with necrosis and WBC infiltration. DISCUSSION: The differential diagnosis includes neutrophilic dermatoses associated with inflammatory bowel disease as the more likely scenario. Entities such as Pyoderma Gangrenosum and Sweet syndrome come to mind. Alternate possibilities would be vasculitis, medium or small-vessel vasculitis. This appears to be less likely because of the complete resolution with low-dose corticosteroids. Evidently, superficial infection is something to be considered, but appears to be less likely in view of the Gram stain from the sample submitted with cultures still pending. The patient will have a colonoscopy today and then we will find out if there is colitis, if it is ulcerative colitis or Crohn disease, or if she has malignancy. If that is the case, then we will wait on the pathology from the amputation and see if we can go in the direction of pyoderma gangrenosum/sweet syndrome and manage with corticosteroids. Job ID: [id number] MTDD
[2020-04-23] MEDS ORDERED: Iopamidol-370 76% 500 ML 1 ML ONE (14:30)
[2020-04-23] MEDS ORDERED: Midazolam HCl 2 mg/2 ml Vial ONE (15:24)
[2020-04-23] MEDS ORDERED: Ketamine 50 MG/ML (10ML VIAL) ONE (15:24)
--- NOTE | 2020-04-23 16:02 | PRG ---
DATE OF SERVICE: 04/23/2020 SUBJECTIVE: Ms. Luna today is seen. She feels better. She has tolerated her bowel prep. She has had an echocardiogram that reveals 60% to 65% ejection fraction, normal atrial and ventricle size, and essentially normal valvular function with mild pulmonic and trace tricuspid regurgitation. Dr. Delacruz is planning colonoscopy today. She has been afebrile. White count is 5.7 with a normal differential, hemoglobin is 7.2. Basic metabolic profile is normal. She has received [address] Moon has seen her, antibiotics adjusted. The patient is status post incision and drainage of multiple foot abscesses. She had a large abscess in dorsum of her right foot. She had a necrotizing soft tissue infection in both lateral malleolar areas. Blood cultures remain negative. Gram stains were negative of thick purulent material obtained from the foot, which I find difficult to believe. Cultures are pending. CEA level is 3.98. Wound VAC on her wounds. ASSESSMENT AND PLAN: Severe necrotizing infection in both feet. We will plan reviewing of her foot wounds tomorrow. Await colonoscopy results. Job ID: [id number]
[2020-04-23] MEDS ORDERED: Fentanyl 100 MCG/2 ML VIAL ONE (16:13)
[2020-04-23 16:27] LABS: Hemoglobin 7.6 g/dL (12.0-16.0)
--- NOTE | 2020-04-23 20:54 | OP ---
DATE OF PROCEDURE: 04/23/2020 PREPROCEDURE DIAGNOSES: 1. Hematochezia. 2. History of colitis back in September of unclear etiology. 3. Recent ulcerative lesions of the skin on her feet and legs with surgical debridement concerning for necrotizing fasciitis reportedly. 4. History of reflux and strictures in the past. POSTPROCEDURE DIAGNOSES: 1. EGD, normal except for mild reflux esophagitis. 2. Colonoscopy, normal terminal ileum. 3. Scattered deep ulcers around 40 cm from the anorectal verge and confluent ulceration from about 20 cm of anorectal verge to the rectum. This is mixed in with severe diverticular disease. Area of regenerative normal mucosa is suggestive of possible severe ischemia in a chronic pattern. Areas of new polyposis formation which seem to be reactive, and one area at least that raises concern for either bridging mucosal bridge or chronic contained perforation at 20 cm from anorectal verge. Photo documentation and biopsies were taken of all this. Differential diagnosis would include Crohn disease and ischemia foremost. Entamoeba or CMV would be less likely. RECOMMENDATIONS: 1. CAT scan this evening. 2. Continue n.p.o. Continue IV fluids and antibiotics. 3. Await biopsies. 4. We will check CMV, histoplasmosis titers, and evaluate for QuantiFERON hepatitis B in anticipation of possible biologic therapy if this is Crohn's. ANESTHESIA: TIVA. DESCRIPTION OF PROCEDURE: After the patient was informed of the risks, benefits, and possible complications of endoscopy including perforation, bleeding, reaction to medication, and aspiration, informed consent was obtained. The patient was brought to endoscopy suite, where she was sedated in gradual fashion. Once she was comfortable, a bite block was placed in the incisural orifice. The endoscope was advanced through the esophagus, stomach, into the second and third portions of the duodenum and slowly removed. There was some mild shallow ring at the GE junction, which was with no evidence of malignancy or other lesions. There was no bleeding sites or ulcer seen. The scope was entered into the stomach which was normal. Forward and retroflexed views of duodenum to the third portion, which was normal. The scope was removed. The patient was turned in the room and rectal examination was performed and was normal. The endoscope was advanced from the anal canal through the colon to the rectum. There were areas of pseudopolyp formation, one large one at mucosal bridge which probably is healing from previous ischemia. This was encountered just at the proximal aspect of the rectum and extends all the way to 20 cm circumferentially with areas of proud, fresh normal mucosa with areas of deeply ulcerated mucosa near that. This most likely appears in appearance I would see with ischemia, although possible inflammatory bowel disease not ruled out. One area there seems to be either a mucosal bridge that makes it like a double lumen or there has been a contained perforation here. I do not think it is a free perforation, as this colon is holding air throughout the entire procedure without the abdomen getting more distended. We were able to get the scope all the way around, passed this to the ileocecal valve and appendiceal orifice. Terminal ileum was entered and found to be normal. The entire ileum and right colon were normal until the 40 cm ananth in the sigmoid. The scope was removed. The patient tolerated the procedures well. There were no complications. Job ID: [id number]
[2020-04-23] MEDS ORDERED: FLU VACC QS2020-21(65YR UP)/PF 240 MCG/0.7 ML SYRINGE IM ONE (21:00)
--- NOTE | 2020-04-23 21:32 | CT ---
CT ABDOMEN AND PELVIS WITH IV CONTRAST: 04/23/20 HISTORY: Blood in stool. Low grade fever. Severe sigmoid colitis. History of chronic diverticulitis. COMPARISON: 10/15/19. FINDINGS: Minimal linear scarring is present at the right lung base. Lung bases are otherwise clear. Post cholecystectomy changes are again seen. The right kidney is atrophic with lobulated appearance. There is questionable 1.1 cm heterogeneously enhancing lesion involving the lateral aspect superior pole of the right kidney, but this may be rela chelsie to lobulated appearance of the kidney. This is difficult to further characterize. This is overall unchanged from prior exam. Left kidney has a normal CT appearance. The liver, spleen, pancreas, and left adrenal gland demonstrate a normal CT appearance. There is a right adrenal nodule present measuring 1.6 cm which is difficult to further characterize o n this examination. Follow-up CT examination following adrenal mass protocol is recommended. Left adr enal gland has a normal CT appearance. Urinary bladder has a normal appearance. Again noted is a heterogeneous pedunculated mass at the uterine fundus likely related to a pedunculat ed subserosal uterine fibroid. Again noted is what appears to be mild thickening involving a portion of the sigmoid colon as well as the distal descending colon. There is minimal amount of fluid and stranding seen in the left hemipel vis adjacent to the colon. The findings may be related to colitis either infectious or inflammatory i n etiology versus diverticulitis as there are colonic diverticula seen in this region as well. The co lonic wall thickening in these regions has decreased when compared to the prior exam. Thickening invo lving the junction of the descending colon and proximal sigmoid colon is more irregular in appearance . No free intraperitoneal gas is seen in the abdomen or pelvis. Vascular calcifications are seen in the abdominal aorta and involving the iliac arteries. There is mild subcutaneous edema present. Degenerative changes are again seen in the spine with stable grade I anterolisthesis of L4 on L5. IMPRESSION: 1. Sigmoid colitis. The thickening involving the junction of the distal descending colon and sig moid colon is more irregular in appearance than on the prior exam. The findings are favored to repres ent colitis, but a neoplastic process involving the junction of the distal descending colon and sigmo id colon cannot be entirely excluded. Follow-up evaluation with colonoscopy is recommended. 2. Minimal amount of fluid in the left hemipelvis with associated stranding. 3. Right adrenal nodule. Follow-up CT abdomen with and without IV contrast following the adrenal mass protocol is recommended. 4. Atrophic right kidney with lobulated appearance. There is a questionable small heterogeneous lesion involves the lateral aspect of the right kidney, but this may be related to lobulated hetero geneous portion of the kidney. Follow-up CT with IV contrast in four months is recommended. Code T POS: [email or web address]
[2020-04-23] MEDS ORDERED: Lorazepam 1 MG TAB PO SCH (22:00)
[2020-04-24] MEDS: HYDROcodone/Acetaminophen 5/325 mg Tablet PO PRN ×5 (01:49→20:00)
[2020-04-24] MEDS: Piperacillin/Tazobactam 3.375 GM in Sodium Chloride 0.9% 100 ML IVPB SCH ×4 (05:27→23:50)
[2020-04-24 05:36] LABS: #Eosinphils 0.1 thou/uL (0.0-0.7); #Lymphocytes 1.5 thou/uL (1.20-3.40); #Monocytes 1.2 thou/uL (0.11-0.59); #Neutrophils 7.3 thou/uL (1.40-6.50); %Basophils 0.3 % (0.0-1.0); %Lymphocytes 14.4 % (21.0-51.0); %Monocytes 12.3 % (0.0-10.0); Mean Corpuscular HGB CONC 31.3 g/dL (32.0-36.0); Mean Corpuscular Hemoglobin 28.9 pg (27.0-31.0); Mean Corpuscular Volume 92.2 fL (78.0-98.0); Platelet Count 327 thou/uL (130-400); RBC Distribution Width 14.9 % (11.5-14.5); Red Blood Cell (RBC) Count 2.41 mill/uL (4.20-5.40); White Blood Cell (WBC) Count 10.1 thou/uL (4.8-10.8)
[2020-04-24 05:59] LABS: Phosphorus 3.4 mg/dL (2.3-4.7)
[2020-04-24 06:00] LABS: ALT (SGPT) 15 U/L (8-55); AST (SGOT) 19 U/L (5-34); Alkaline Phosphatase 101 U/L (40-110); Anion Gap 14 mmol/L (10-20); BUN (Urea Nitrogen) 6 mg/dL (9.8-20.1); Bilirubin, Total 0.2 mg/dL (0.2-1.2); Calc. Creatinine Clearance 91 mL/min (70-130); Calcium 7.8 mg/dL (7.8-10.44); Carbon Dioxide 20 mmol/L (23-31); Chloride 105 mmol/L (98-107); Globulin 2.8 g/dL (2.4-3.5); Glucose 80 mg/dL (80-115); Protein, Total 4.8 g/dL (6.0-8.3); Sodium 136 mmol/L (136-145)
[2020-04-24 06:01] LABS: CRP (Inflammatory) 23.74 mg/dL (= or < 0.5); Magnesium 1.9 mg/dL (1.6-2.6)
[2020-04-24 06:06] LABS: Complement-C4 25.7 mg/dL (15-57)
[2020-04-24 06:18] LABS: Hep B Surf Ag Non-Reactive S/CO (NonReactive)
[2020-04-24 07:23] LABS: Hep B Surf AB EQUIVOCAL (NonReactive)
[2020-04-24 07:24] LABS: HBSAB Concentration 9.88 mIU/mL
[2020-04-24] MEDS: Pantoprazole 40 MG VIAL IVP SCH ×2 (08:08→20:01)
[2020-04-24] MEDS: Ondansetron PF 4 MG/2 ML Vial IVP PRN ×2 (09:30→17:44)
[2020-04-24] MEDS ORDERED: Lorazepam 1 MG TAB PO SCH (10:00)
--- NOTE | 2020-04-24 11:29 | PRG ---
DATE OF SERVICE: 04/24/2020 TIME OF SERVICE: 9:00 a.m. CONSULTATIONS: On the case; 1. Dr. Nikita Villarreal, General Surgery. 2. Dr. Brian Moon, Infectious Disease. 3. Carl Santos, Gastroenterology. SUBJECTIVE: The patient was seen and evaluated at bedside. The patient afebrile, alert, oriented, not in acute distress today. The patient is status post colonoscopy with findings of deep ulcerations pointing out towards the possibility of inflammatory bowel disease with lower extremity debridement and irrigation of the patient's necrotizing fasciitis versus pyoderma gangrenosum. MEDICATIONS: 1. Zosyn 3.375 g every 6 hours. 2. Lorazepam 1 mg p.o. b.i.d. 3. [place] 5/325 q.4 p.r.n. 4. Zofran 4 mg q.6 p.r.n. OBJECTIVE: VITAL SIGNS: The patient has a temperature of 98 degrees Fahrenheit, heart rate of 91 per minute, respiratory rate of 16 per minute, saturation 100% on room air, blood pressure 136/75 mmHg. Has an airway, which is clear. HEENT: Atraumatic, normocephalic. NECK: Supple. No bruit. No lymphadenopathy. No JVD. CV: S1 and S2. No abnormal rhythms or murmurs. CHEST: Bilateral air entry present. No rhonchi. No wheeze. ABDOMEN: Soft, nontender. Bowel sounds are present. No organomegaly. EXTREMITIES: No cyanosis. Wound VAC in place. HEME: No ecchymosis or petechiae. PSYCH: No depression. DIAGNOSTICS: WBC is 10.1, hemoglobin 7.0, and hematocrit 22.2. Sodium 136, potassium 3.0, chloride 105, carbon dioxide 20, anion gap is 14, BUN 6, creatinine 0.81, phosphorus 3.4, AST 19, and ALT 15. C-reactive protein is 23.74, complement C3 and C4 normal. Blood cultures, no growth at this point of time. ASSESSMENT: 1. Suspected inflammatory bowel disease with deep ulcerations in the patient's colon. As dictated prior, no evidence of any sigmoid mass was noted. The patient currently being evaluated for biopsy to confirm inflammatory bowel disease diagnosis per my discussion with Gastroenterology. 2. Necrotizing fasciitis versus pyoderma gangrenosum and for which IV Zosyn will be continued. Appreciate Infectious Disease recommendations and input. 3. Acute lower gastrointestinal bleed, likely secondary to inflammatory bowel disease. The patient's hemoglobin is stable. For now, we will transfuse for hemoglobin less than 7. 4. History of diverticulosis. 5. History of gout. 6. Benign essential hypertension. 7. Acute blood loss anemia, likely secondary to inflammatory bowel disease. PLAN: Discussed in detail about the diagnosis, treatment, and followup with the patient as well as the patient's . I have reviewed the patient's followup care and treatment plan with the daughter, who is a nurse at [phone], Meli Samia. All questions and concerns were addressed. We will follow official biopsy results evaluation. Job ID: [id number] [facility]
[2020-04-24] MEDS: Fentanyl 100 MCG/2 ML VIAL SLOW IVP PRN (11:36)
--- NOTE | 2020-04-24 17:34 | PRG ---
DATE OF SERVICE: 04/24/2020 SUBJECTIVE: Ms. Vargas Luna has no significant change in her symptoms. She has diarrhea multiple times per day, but feels like she is emptying out a little bit better. She has had no new change in abdominal pain since colonoscopy yesterday. Still with some blood mixed with the diarrhea. PHYSICAL EXAMINATION: VITAL SIGNS: Temperature 98.6, pulse 96, blood pressure 100/65. GENERAL: She is in no acute distress. Awake and alert. LUNGS: Clear to auscultation bilaterally. HEART: Regular rate and rhythm without murmur. ABDOMEN: Soft. Mild tenderness in lower abdomen without guarding. Bowel sounds are present. EXTREMITIES: No lower extremity edema. Her ankle wounds are dressed, but I did review the pictures of the wounds on her 's camera. She also has a soft nodule on her left wrist with overlying erythema of the skin. LABORATORY DATA: ESR is 70. Hepatitis B surface antigen is negative, the antibody is equivocal. White blood cell count 10.1, hemoglobin 7.0, platelets 327. IMPRESSION: 1. Crohn disease with multiple large ulcerations in the left colon and presenting with chronic diarrhea and hematochezia. We are awaiting her biopsies. 2. Possible contained perforation in the descending/sigmoid colon. She had a difficult colonoscopy, but has no new symptoms associated with this. We will cover this with antibiotics. 3. Pyoderma gangrenosum, bilateral lower extremities, at the ankle and foot. The nodule on her left wrist likely represents erythema nodosum; however, this is a little bit softer or spongier than typical. The patient's reports that the other lesions on her feet started out in a similar fashion. RECOMMENDATIONS: Ideally, we would start an anti-TNF. We will not start this until after we have the QuantiFERON back. Also, I would wait to see how this question of a contained perforation develops as well. Therefore, in the meantime, we will just start her on IV steroids. Also, we will await biopsy results before proceeding with anti-TNF. Remicade would likely be the most appropriate for her. We will need to verify that we can get the next dose scheduled as an outpatient, which would be needed 2 weeks after the first infusion. Again, we will buy time with steroids until this can be achieved. Job ID: [id number]
[2020-04-24] MEDS: Sodium Chloride 0.9% 1,000 ML IV SCH (17:36)
--- NOTE | 2020-04-24 17:44 | PRG ---
DATE OF SERVICE: 04/24/2020 Shakila Luna is doing well today. She is afebrile. Wound Care changed the wound VAC dressing today and sent pictures and they looked acceptable. They are doing better. Her cultures blood are negative. Wound cultures are pending. Pathology from her left colon biopsy is pending. This could be inflammatory bowel disease, regional enteritis versus ischemic colitis. At this point, she will need outpatient wound care and antibiotics per Dr. Moon. She still has arthritic concerns, this plays into the mixes per Medical. At this point, Surgery will see her as needed this hospitalization. I will see her next week. If she is still here, she should follow up with outpatient wound care with wound VAC. She should see me in my office in 2 to 3 weeks. I will see her next week if she is still here. Please call covering surgery, Dr. Yoder if necessary. The patient, I think, is at risk for needing a left colon resection as she has had this ongoing colitis since September. We will see what the biopsies show and await GI recommendations. Job ID: [id number]
[2020-04-24] MEDS ORDERED: methylPREDNISolone Sod Succ 40 MG VIAL IVP SCH (19:00)
[2020-04-24] MEDS: Lorazepam 1 MG TAB PO SCH (20:01)
[2020-04-25] MEDS: HYDROcodone/Acetaminophen 5/325 mg Tablet PO PRN ×4 (03:11→18:37)
[2020-04-25] MEDS: Piperacillin/Tazobactam 3.375 GM in Sodium Chloride 0.9% 100 ML IVPB SCH ×3 (06:11→17:30)
[2020-04-25] MEDS: methylPREDNISolone Sod Succ 40 MG VIAL IVP SCH ×3 (06:12→19:45)
[2020-04-25 06:33] LABS: #Lymphocytes 1.5 thou/uL (1.20-3.40); #Monocytes 0.7 thou/uL (0.11-0.59); #Neutrophils 5.4 thou/uL (1.40-6.50); %Basophils 0.6 % (0.0-1.0); %Eosinophils 0.3 % (0.0-10.0); %Lymphocytes 19.5 % (21.0-51.0); %Monocytes 8.7 % (0.0-10.0); %Neutrophils 70.9 % (42.0-75.0); Hemoglobin 7.9 g/dL (12.0-16.0); Mean Corpuscular HGB CONC 31.9 g/dL (32.0-36.0); Mean Corpuscular Hemoglobin 29.4 pg (27.0-31.0); Mean Corpuscular Volume 92.1 fL (78.0-98.0); Mean Platelet Volume 7.2 fL (7.4-10.4); Platelet Count 378 thou/uL (130-400); Red Blood Cell (RBC) Count 2.67 mill/uL (4.20-5.40); White Blood Cell (WBC) Count 7.6 thou/uL (4.8-10.8)
[2020-04-25 06:46] LABS: Anion Gap 12 mmol/L (10-20); BUN (Urea Nitrogen) 6 mg/dL (9.8-20.1); Calc. Creatinine Clearance 98 mL/min (70-130); Calcium 8.1 mg/dL (7.8-10.44); Carbon Dioxide 23 mmol/L (23-31); Chloride 106 mmol/L (98-107); Glucose 112 mg/dL (80-115); Potassium 3.4 mmol/L (3.5-5.1); Sodium 138 mmol/L (136-145)
[2020-04-25] MEDS: Pantoprazole 40 MG VIAL IVP SCH ×2 (08:07→19:45)
[2020-04-25] MEDS: Lorazepam 1 MG TAB PO SCH ×2 (08:08→19:45)
[2020-04-25] MEDS ORDERED: Clobetasol 0.05% Cream 15 gm Tube TOP SCH (10:15)
[2020-04-25] MEDS: Sodium Chloride 0.9% 1,000 ML IV SCH (10:16)
--- NOTE | 2020-04-25 11:35 | PRG ---
DATE OF SERVICE: 04/25/2020 TIME OF SERVICE: 8 a.m. CONSULTATIONS ON THE CASE: 1. Dr. Cordell Villarreal, General Surgery. 2. Dr. Carl Urrutia, Gastroenterology. SUBJECTIVE: Patient seen and evaluated at bedside. The patient is alert, oriented, comfortable, ambulating from bed to chair. The patient is able to move her bowels. Currently diagnosed with inflammatory bowel disease, likely Crohn's with deep ulcerations without any evidence of perforation. OBJECTIVE: VITAL SIGNS: Temperature 97.5 degrees Fahrenheit, pulse of 84 per minute, respiratory rate of 18 per minute, saturation 98%, blood pressure 129/73 mmHg. Has an airway, which is clear. HEENT: Atraumatic, normocephalic. NECK: Supple. No bruit. No lymphadenopathy. CV: S1, S2. No abnormal rhythms or murmurs. CHEST: Bilateral air entry present. No rhonchi. No wheeze. ABDOMEN: Soft, nontender. Bowel sounds are present. No organomegaly. EXTREMITIES: No cyanosis, mild edema noted. NEUROLOGIC: Patient is alert, oriented x3. No focal motor or sensory deficits noted. HEME: No ecchymosis or petechiae. PSYCH: No depression. DIAGNOSTICS: WBC 7.6, hemoglobin 7.9, hematocrit 24.6, platelets are 378. Sodium 138, potassium 3.4, chloride 106, carbon dioxide 23, BUN 6, creatinine 0.75. Two sets of blood cultures done, no evidence of bacterial growth noted. Status post colonoscopy and EGD normal except for mild reflux esophagitis. With colonoscopy, patient was found to have scattered deep ulcers around 40 cm from the anorectal verge and confluent ulceration from about 20 cm of the anorectal verge to the rectum. This is mixed with severe diverticular disease. The area of regenerate to normal mucosa suggestive of possible severe ischemia in a chronic pattern. The areas of new polyposis formation which seems to be reactive. ASSESSMENT: 1. Suspected Crohn disease with inflammatory pattern and deep ulcerations. Also there was a possibility of ischemic chronic process in the bowel wall. The patient currently on IV steroids for gastroenterology. The patient will be likely started anti-TNF factor. At some point of time once the patient's TB QuantiFERON test is negative. 2. Necrotizing fasciitis versus pyoderma gangrenosum basing on the patient's high suspicion for inflammatory bowel disease. The patient currently on topical steroid cream. 3. Acute lower gastrointestinal bleed, likely secondary to deep ulcerations. Currently hemoglobin stable. 4. History of diverticulosis. 5. History of mild esophagitis. 6. Status post EGD and colonoscopy. 7. Acute blood loss anemia. Patient's hemoglobin is stable above 7 for now. PLAN: Discussed in detail of the diagnosis, treatment, and followup with the patient as well as patient's . I have reviewed with the patient's daughter in regard to patient's plan of care. Anti TNF treatment at some point of time, currently on steroids. The patient's daughter can be reached at [phone], Ms. Staton. Job ID: [id number]
[2020-04-25 14:15] LABS: Fungus Stain Final report (.)
--- NOTE | 2020-04-25 15:42 | PRG ---
DATE OF SERVICE: 04/25/2020 SUBJECTIVE: Ms. Vargas Luna has no major changes today, but she reported 20 bowel movements yesterday and only a couple this morning. No blood in the stool today. She has had some improvement in her abdominal pain. No change in her skin lesions. She started the steroids last night. PHYSICAL EXAMINATION: VITAL SIGNS: Temperature 97.5, pulse 84, blood pressure 129/73. GENERAL: She is in no acute distress. Alert and oriented x3. LUNGS: Clear to auscultation bilaterally. HEART: Regular rate and rhythm without murmur. ABDOMEN: Soft, nontender, and nondistended. Bowel sounds are present. EXTREMITIES: No lower extremity edema. LABORATORY DATA: White blood cell count 7.6, hemoglobin 7.9, and platelets 378. IMPRESSION: 1. Crohn disease. The colon biopsy showed chronic colitis, consistent with Crohn's. Microscopic description was not provided. I have asked Pathology to review this further. 2. Pyoderma gangrenosum. RECOMMENDATIONS: 1. She will need to start anti-TNF. I think Remicade would likely be the most appropriate for her; however, they do [place] out of town and the is potentially willing to give her injections with Humira, but she does not believe she could give them herself. I did offer to start the infliximab more directly, but she wishes to think about this further, and therefore, we are bridging with steroids in the meantime. We will also await her QuantiFERON for now. I have been unable to get an answer in the lab to get an idea as to when this will be available. However, it is generally run early in the week and I would not expect results until next week at this point. 2. Solu-Medrol IV 20 mg q.8 h. Job ID: [id number]
[2020-04-25] MEDS: Clobetasol 0.05% Cream 15 gm Tube TOP SCH (19:44)
--- NOTE | 2020-04-25 19:51 | PRG ---
DATE OF SERVICE: 04/25/2020 SUBJECTIVE: The patient had the colonoscopy, which showed areas of scattered deep ulcers around 40 cm from the anorectal verge mixed with severe diverticular disease. The biopsy showed chronic nonspecific colitis and the surgical specimen from the amputation showed ischemic ulceration. It is probably just skin and soft margins viable and they described acute osteomyelitis. OBJECTIVE: VITAL SIGNS: The patient's vital signs are normal. BP 107/51 and heart rate 78. GENERAL: Awake, alert, and oriented. LUNGS: Clear. HEART: S1 and S2. Regular rate. ABDOMEN: Soft, not distended or tender. LABORATORY DATA: Cultures are negative from two samples at 3 days. ASSESSMENT AND DISCUSSION: Chronic colitis, probably Crohn disease and skin areas of inflammatory change with abscess formation, which previously had responded to corticosteroids. 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 Discontinue antimicrobial therapy and monitor response to immunosuppressive medication. Job ID: [id number]
[2020-04-26] MEDS: Sodium Chloride 0.9% 1,000 ML IV SCH ×2 (03:43→21:14)
[2020-04-26] MEDS: HYDROcodone/Acetaminophen 5/325 mg Tablet PO PRN ×4 (04:08→21:40)
[2020-04-26] MEDS: methylPREDNISolone Sod Succ 40 MG VIAL IVP SCH ×3 (06:07→21:16)
[2020-04-26 06:21] LABS: #Eosinphils 0.1 thou/uL (0.0-0.7); #Lymphocytes 1.8 thou/uL (1.20-3.40); #Monocytes 0.7 thou/uL (0.11-0.59); #Neutrophils 5.1 thou/uL (1.40-6.50); %Eosinophils 0.7 % (0.0-10.0); %Monocytes 8.5 % (0.0-10.0); %Neutrophils 66.8 % (42.0-75.0); Hemoglobin 7.5 g/dL (12.0-16.0); Mean Corpuscular HGB CONC 31.8 g/dL (32.0-36.0); Mean Corpuscular Hemoglobin 29.4 pg (27.0-31.0); Mean Corpuscular Volume 92.6 fL (78.0-98.0); Mean Platelet Volume 7.1 fL (7.4-10.4); Platelet Count 400 thou/uL (130-400); RBC Distribution Width 15.1 % (11.5-14.5); Red Blood Cell (RBC) Count 2.55 mill/uL (4.20-5.40); White Blood Cell (WBC) Count 7.7 thou/uL (4.8-10.8)
[2020-04-26 06:42] LABS: ALT (SGPT) 10 U/L (8-55); AST (SGOT) 10 U/L (5-34); Alkaline Phosphatase 92 U/L (40-110); Anion Gap 11 mmol/L (10-20); BUN (Urea Nitrogen) 8 mg/dL (9.8-20.1); Bilirubin, Total Less than 0.2 mg/dL (0.2-1.2); Calc. Creatinine Clearance 104 mL/min (70-130); Carbon Dioxide 25 mmol/L (23-31); Chloride 107 mmol/L (98-107); Globulin 2.9 g/dL (2.4-3.5); Glucose 113 mg/dL (80-115); Potassium 3.8 mmol/L (3.5-5.1); Protein, Total 4.9 g/dL (6.0-8.3); Sodium 139 mmol/L (136-145)
[2020-04-26] MEDS: Lorazepam 1 MG TAB PO SCH ×2 (09:13→21:15)
[2020-04-26] MEDS: Pantoprazole 40 MG VIAL IVP SCH (09:14)
[2020-04-26] MEDS: Clobetasol 0.05% Cream 15 gm Tube TOP SCH ×2 (09:24→21:17)
--- NOTE | 2020-04-26 09:37 | EKG ---
Test Reason : Blood Pressure : / mmHG Vent. Rate : 101 BPM Atrial Rate : 101 BPM P-R Int : 148 ms QRS Dur : 076 ms QT Int : 310 ms P-R-T Axes : 029 022 011 degrees QTc Int : 401 ms Sinus tachycardia Low voltage QRS Nonspecific T wave abnormality Abnormal ECG Confirmed by ZOHREH ALEGRE DO ([id number]), proposal editor CHRISTEL LOTT ([id number]) on 04/26/2020 9:37:13 AM Referred By: Confirmed By:ZOHREH ALEGRE DO
--- NOTE | 2020-04-26 11:58 | PRG ---
DATE OF SERVICE: 04/26/2020 CONSULTATIONS ON THE CASE: 1. Dr. Carl Urrutia, Gastroenterology. 2. Dr. Red Torres, Infectious Disease. 3. Dr. Nikita Villarreal, Surgery. ALLERGIES: MORPHINE, SULFA. SUBJECTIVE: The patient was seen and evaluated at bedside. The patient feels better. Remains afebrile, though complains of abdominal pain, persistent in nature without any nausea or vomiting. OBJECTIVE: GENERAL: The patient is not in acute distress except for complaints of abdominal pain intermittently. VITAL SIGNS: Has a temperature of 98.4 degrees Fahrenheit, pulse of 86 per minute, respiratory rate of 20 per minute, saturation 98% on room air, has a blood pressure of 113/71 mmHg. Has an airway which is clear. HEENT: Atraumatic, normocephalic. NECK: Supple. No bruit. No lymphadenopathy. CV: S1, S2. No abnormal rhythms or murmurs. CHEST: Bilateral air entry present. No rhonchi. No wheeze. ABDOMEN: Soft, nontender. Bowel sounds are present. No organomegaly. EXTREMITIES: No cyanosis. Has a bandaged right ankle area secondary to recent amputation of the great toe and debridement of the patient's necrotizing fasciitis tissue. HEME: No ecchymosis or petechiae. PSYCH: No depression or anxiety. NEUROLOGIC: The patient is alert and oriented x3. No focal motor or sensory deficits noted. DIAGNOSTICS: WBC 7.7, hemoglobin 7.5, hematocrit 23.6, and platelets are 400. Sodium 139, potassium 3.8, chloride 107, carbon dioxide 25, BUN 8, creatinine 0.71. Total bilirubin less than 0.2, AST 10, ALT 10, albumin 2, globulin 2.9. Bacterial wound culture evaluation did not show any growth at this point of time. MEDICATIONS: 1. Zosyn 3.375 g, which has been discontinued. 2. Methylprednisone 20 mg IV q.8 hours. 3. Lorazepam 1 mg b.i.d. 4. Pantoprazole 40 mg IV b.i.d., which I will convert to p.o. 5. [place] 1 tab q.4 p.r.n. ASSESSMENT: 1. High suspicion for Crohn disease with inflammatory pattern and deep ulcerations, status post colonoscopy. The patient currently on IV steroids. Eventual future plan would be starting the patient on alpha tissue and TNF factor induction. At this point of time, we are awaiting TB QuantiFERON test to be negative. 2. Pyoderma gangrenosum versus necrotizing fasciitis, likely secondary to inflammatory bowel disease. 3. Status post acute lower gastrointestinal bleed, secondary to Crohn disease. Stable hemoglobin. 4. History of diverticulosis. 5. History of mild esophagitis, status post esophagogastroduodenoscopy. 6. Acute blood loss anemia. Hemoglobin stable. PLAN: Discussed in detail of the diagnosis, treatment, and followup with the patient. Advised the patient about continuation of IV steroids. At some point of time, the patient will be on alpha-TNF once QuantiFERON testing is negative for TB. Awaiting official biopsy confirmation and Gastroenterology review. Job ID: [id number]
--- NOTE | 2020-04-26 12:57 | PRG ---
DATE OF SERVICE: 04/26/2020 SUBJECTIVE: Ms. Kaye is doing better overall. She has less irritation over the nodule over her left wrist. She has had only 2 bowel movements today so far, but they have had some mucus and blood with them. She had around 4 bowel movements yesterday, which is down from 20 per day. Still gets some abdominal pain prior to bowel movements, but otherwise that part is doing okay. PHYSICAL EXAMINATION: VITAL SIGNS: Temperature 98.4, pulse 86, blood pressure 113/71. GENERAL: She is in no acute distress. Alert and oriented x3. LUNGS: Clear to auscultation bilaterally. HEART: Regular rate and rhythm without murmur. ABDOMEN: Soft, nontender, and nondistended. Bowel sounds are present. EXTREMITIES: No lower extremity edema. Her wounds are dressed. LABORATORY DATA: Creatinine 0.71. LFTs are normal. Albumin 2.0. White blood cell count 7.7, hemoglobin 7.5, platelets 400. IMPRESSION: 1. Crohn's colitis. She is having symptomatic improvement with steroids IV. The plan will eventually be to chart changer to oral steroids and taper those slowly and then transition to an anti-TNF when she feels comfortable proceeding with that. We will have to discuss further whether Humira or Remicade will be best for her based on her travel distance. 2. Pyoderma gangrenosum. RECOMMENDATIONS: 1. Continue methylprednisolone. 2. Await QuantiFERON. 3. Advance her diet today. Job ID: [id number]
[2020-04-27] MEDS: HYDROcodone/Acetaminophen 5/325 mg Tablet PO PRN ×3 (04:02→21:22)
[2020-04-27] MEDS: methylPREDNISolone Sod Succ 40 MG VIAL IVP SCH ×3 (06:15→21:22)
[2020-04-27 06:53] LABS: Iron 29 ug/dL (50-170); Iron Binding Capacity, Total 130 mcg/dL (265-497)
[2020-04-27 07:19] LABS: Ferritin 178.67 ng/mL (10-291)
[2020-04-27 07:28] LABS: Vitamin B12 Greater than 2000 pg/mL (211-911)
[2020-04-27] MEDS: Clobetasol 0.05% Cream 15 gm Tube TOP SCH ×2 (09:00→21:28)
[2020-04-27] MEDS: Lorazepam 1 MG TAB PO SCH ×2 (09:26→21:22)
[2020-04-27] MEDS: Multivit, Therapeutic 1 TAB PO SCH (09:27)
[2020-04-27] MEDS: Folic Acid 1 MG TAB PO SCH ×2 (09:27→21:22)
[2020-04-27] MEDS: Sodium Chloride 0.9% 1,000 ML IV SCH (14:08)
--- NOTE | 2020-04-27 16:23 | PRG ---
DATE OF SERVICE: 04/27/2020 SUBJECTIVE: Ms. Vargas Luna complains of increase in her diarrhea today, but less blood in the stool. Still having cramping abdominal pain. Generally, she feels worse today than yesterday. OBJECTIVE: VITAL SIGNS: Temperature 98.6, pulse 76, and blood pressure 147/86. GENERAL: She is in no acute distress. Alert and oriented x3. LUNGS: Clear to auscultation bilaterally. HEART: Regular rate and rhythm without murmur. ABDOMEN: Soft, nontender, and nondistended. Bowel sounds are present. EXTREMITIES: No lower extremity edema. LABORATORY DATA: White blood cell count 7.7, hemoglobin 7.5, and platelets 400. Creatinine 0.71. Iron 29, TIBC 130, and ferritin 178. IMPRESSION: 1. Crohn disease with Crohn colitis and deep ulcers in the left colon. 2. Pyoderma gangrenosum. 3. Anemia of chronic disease. RECOMMENDATIONS: 1. Continue methylprednisolone. She has had slight improvement overall in this, but certainly not impressive improvement. She is not ready to change to oral steroids yet. 2. Await QuantiFERON. 3. We did advance her diet yesterday, which may be the reason her diarrhea picked up today and she actually is not likely doing any worse from a colon standpoint. Job ID: [id number]
[2020-04-27 16:24] LABS: CCP IgG Antibody 1.6 EliAU/mL (<7 Negative); EliA RAS New Method **** NEW METHOD ****; Rheumatoid Factor IgA Antibody 4.1 IU/mL (<14 Negative); Rheumatoid Factor IgM Antibody 0.6 IU/mL (<3.5 Negative); dsDNA IgG Antibody 0.7 IU/mL (<10 Negative)
[2020-04-27] MEDS: Calcium Carbonate 600 MG + Vit D TAB PO SCH (17:11)
--- NOTE | 2020-04-27 17:39 | PDOC.HOSPP ---
- Subjective Encounter Date: 04/27/20 Encounter Time: 11:30 Subjective: Patient seen and examined for GI bleeding with bilateral lower extremity skin lesions. Nausea with some diarrhea reported. Continues to have abdominal discomfort. Denies any fever or chills. - Objective Vital Signs & Weight: Vital Signs (12 hours) Temp Pulse Resp BP Pulse Ox 04/27/20 09:14 98.6 F 76 18 147/86 H 99 Weight Admit Weight 183 lb 8 oz Weight 183 lb 8 oz I&O: 04/26/20 04/27/20 04/28/20 06:59 06:59 06:59 Intake Total 1640 1800 Output Total 500 Balance 1640 1300 Result Diagrams: 04/26/20 06:10 04/26/20 06:10 Radiology Reviewed by me: Yes (CT abdomen reviewed) Hospitalist ROS - Review of Systems Respiratory: denies: cough, dry, shortness of breath, hemoptysis, SOB with excertion, pleuritic pain, sputum, wheezing, other Cardiovascular: denies: chest pain, palpitations, orthopnea, paroxysmal noc. dyspnea, edema, light headedness, other - Medication Medications: Active Medications Generic Name Dose Route Start Last Admin Trade Name Freq PRN Reason Stop Dose Admin Acetaminophen 1,000 mg 04/22/20 13:27 04/23/20 05:41 Acetaminophen 500 Mg Tab PO 1,000 mg Q6H PRN Administration Moderate to Severe Pain (6-10) Hydrocodone Bitart/Acetaminophen 1 tab 04/22/20 16:54 04/26/20 04:08 Hydrocodone/Acetaminophen 5/325 Mg Tablet PO 1 tab Q4H PRN Administration Mild-Moderate Pain (1-5) Hydrocodone Bitart/Acetaminophen 2 tab 04/22/20 16:54 04/27/20 12:33 Hydrocodone/Acetaminophen 5/325 Mg Tablet PO 2 tab Q4H PRN Administration Severe Pain (7-10) Calcium/Vitamin D 1 tab 04/27/20 17:00 04/27/20 17:11 Calcium Carbonate 600 Mg + Vit D Tab PO 1 tab BID-WM SWETA Administration Clobetasol Propionate 0 gm 04/25/20 21:00 04/27/20 09:00 Clobetasol 0.05% Cream 15 Gm Tube TOP 1 applic BID SWETA Administration Fentanyl 25 mcg 04/21/20 22:41 04/24/20 11:36 Fentanyl 100 Mcg/2 Ml Vial SLOW IVP 25 mcg Q2H PRN Administration Pain Folic Acid 1 mg 04/27/20 09:00 04/27/20 09:27 Folic Acid 1 Mg Tab PO 1 mg BID SWETA Administration Sodium Chloride 1,000 mls @ 60 mls/hr 04/21/20 22:15 04/27/20 14:08 Normal Saline 0.9% IV 1,000 mls .[id number] SWETA Administration Ibuprofen 600 mg 04/22/20 13:27 04/25/20 21:12 Ibuprofen 600 Mg Tab PO 600 mg Q6H PRN Administration Pain Lorazepam 1 mg 04/24/20 21:00 04/27/20 09:26 Lorazepam 1 Mg Tab PO 1 mg BID SWETA Administration Methylprednisolone Sodium Succinate 20 mg 04/25/20 06:00 04/27/20 14:09 Methylprednisolone Sod Succ 40 Mg Vial IVP 20 mg Q8HR SWETA Administration Multivitamins 1 tab 04/27/20 09:00 04/27/20 09:27 Multivit, Therapeutic 1 Tab PO 1 tab DAILY SWETA Administration Ondansetron HCl 4 mg 04/22/20 12:04 04/24/20 17:44 Ondansetron Pf 4 Mg/2 Ml Vial IVP 4 mg Q6H PRN Administration Nausea/Vomiting Pantoprazole Sodium 40 mg 04/27/20 09:00 04/27/20 09:27 Pantoprazole 40 Mg Tab PO 40 mg DAILY SWETA Administration Sodium Chloride 10 ml 04/22/20 09:00 04/27/20 09:29 Flush - Normal Saline 10 Ml Syringe IVF Not Given Q12HR SWETA - Exam General Appearance: ill appearing Neck: supple, no JVD Heart: RRR, no gallops Respiratory: no wheezes, no ronchi Gastrointestinal: soft, non-distended, tender to palpation (Generalized tenderness) Extremities: no cyanosis, no clubbing Extremities - other findings: Bilateral lower extremity wound dressing Neurological: no new deficit Hosp A/P - Plan DVT proph w/SCDs Crohn's disease with Crohn's colitis/colon ulcers causing GI bleeding 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 Continue IV Solu-Medrol 20 mg 8 hourly. Continue PPIs with calcium supplementation. Replace folic acid. Pain control. Physical therapy occupational therapy. Recheck labs in a.m. Consult patient case manager for alf facility placement. Continue wound care. Continue other medications as above
[2020-04-27] MEDS: Ondansetron PF 4 MG/2 ML Vial IVP PRN (18:05)
[2020-04-28] MEDS: Sodium Chloride 0.9% 1,000 ML IV SCH (03:41)
[2020-04-28] MEDS: HYDROcodone/Acetaminophen 5/325 mg Tablet PO PRN ×3 (03:41→20:03)
[2020-04-28] MEDS: methylPREDNISolone Sod Succ 40 MG VIAL IVP SCH ×3 (06:10→22:14)
[2020-04-28 06:34] LABS: #Lymphocytes 1.6 thou/uL (1.20-3.40); #Monocytes 0.4 thou/uL (0.11-0.59); #Neutrophils 3.2 thou/uL (1.40-6.50); %Basophils 0.4 % (0.0-1.0); %Eosinophils 0.6 % (0.0-10.0); %Lymphocytes 31.1 % (21.0-51.0); %Monocytes 7.5 % (0.0-10.0); %Neutrophils 60.5 % (42.0-75.0); Hemoglobin 7.6 g/dL (12.0-16.0); Mean Corpuscular HGB CONC 31.6 g/dL (32.0-36.0); Mean Corpuscular Hemoglobin 29.3 pg (27.0-31.0); Mean Corpuscular Volume 92.9 fL (78.0-98.0); Platelet Count 426 thou/uL (130-400); RBC Distribution Width 15.5 % (11.5-14.5); Red Blood Cell (RBC) Count 2.58 mill/uL (4.20-5.40); White Blood Cell (WBC) Count 5.2 thou/uL (4.8-10.8)
[2020-04-28 06:51] LABS: ALT (SGPT) 10 U/L (8-55); AST (SGOT) 10 U/L (5-34); Albumin 2.3 g/dL (3.4-4.8); Alkaline Phosphatase 91 U/L (40-110); Anion Gap 11 mmol/L (10-20); BUN (Urea Nitrogen) 9 mg/dL (9.8-20.1); Bilirubin, Total 0.2 mg/dL (0.2-1.2); Calc. Creatinine Clearance 117 mL/min (70-130); Calcium 8.2 mg/dL (7.8-10.44); Carbon Dioxide 30 mmol/L (23-31); Chloride 103 mmol/L (98-107); Globulin 2.9 g/dL (2.4-3.5); Glucose 131 mg/dL (80-115); Potassium 3.8 mmol/L (3.5-5.1); Protein, Total 5.2 g/dL (6.0-8.3); Sodium 140 mmol/L (136-145)
[2020-04-28] MEDS: Calcium Carbonate 600 MG + Vit D TAB PO SCH ×2 (08:12→18:01)
[2020-04-28] MEDS: Cyanocobalamin (Vitamin B-12) 1,000 MCG TAB PO SCH (08:12)
[2020-04-28] MEDS: Multivit, Therapeutic 1 TAB PO SCH (08:12)
[2020-04-28] MEDS: Clobetasol 0.05% Cream 15 gm Tube TOP SCH ×2 (08:12→20:04)
[2020-04-28] MEDS: Lorazepam 1 MG TAB PO SCH ×2 (08:12→20:03)
[2020-04-28] MEDS: Folic Acid 1 MG TAB PO SCH ×2 (08:12→20:04)
[2020-04-28] MEDS: Fentanyl 100 MCG/2 ML VIAL SLOW IVP PRN (10:57)
[2020-04-28] MEDS: Ondansetron PF 4 MG/2 ML Vial IVP PRN (12:26)
--- NOTE | 2020-04-28 14:26 | PRG ---
DATE OF SERVICE: 04/28/2020 SUBJECTIVE: Ms. Luna has some discomfort after having her dressings changed over her wounds on her feet. She has had 3 bowel movements today so far. She has not had blood with the stool, but still getting some liquidy urgency after eating. She chose to back herself off to a clear liquid diet today. OBJECTIVE: VITAL SIGNS: Temperature 98.7, pulse 80, blood pressure 168/84. GENERAL: She is in no acute distress. Alert and oriented x3. LUNGS: Clear to auscultation bilaterally. HEART: Regular rate and rhythm without murmur. ABDOMEN: Soft, nontender, and nondistended. Bowel sounds are present. EXTREMITIES: No lower extremity edema. LABORATORY DATA: White blood cell count 5.2, hemoglobin is 7.6, platelets 426. Albumin 2.3, creatinine 0.63. IMPRESSION: Crohn colitis. She has been started on IV steroids. I have recommended starting infliximab for her. She would like to continue thinking about that. She does live an hour away, but does not really feel comfortable with the idea of giving herself injections either. I think given her anxiety about the treatment, the best medicine for her would be infliximab. Until she feels ready to start that medicine, however, we will continue with IV steroids. In the meantime, we are awaiting a QuantiFERON as well. RECOMMENDATIONS: 1. Heart healthy diet. 2. Await QuantiFERON and other labs previously ordered by Dr. Delacruz, which are pending. 3. Continue methylprednisolone. We should be ready to switch over from IV steroids to prednisone either tomorrow or the next day. 4. She will need to follow up in the office with me in the next 2 to 3 weeks. I have recommended starting infliximab which could be potentially initiated in the hospital as Inflectra or if she ultimately continues to wait to decide, then this could be done as an outpatient. 5. Dr. Leigh will cover the service tomorrow. Job ID: [id number]
--- NOTE | 2020-04-28 18:43 | PDOC.HOSPP ---
- Subjective Encounter Date: 04/28/20 Encounter Time: 14:00 Subjective: Patient seen and examined for Crohn's disease with colitis and skin involvement. Denies any new complaints. Diarrhea is slowing down. Denies any fever or chills. Abdominal pain improving. - Objective Vital Signs & Weight: Vital Signs (12 hours) Temp Pulse Resp BP Pulse Ox 04/28/20 08:24 100 04/28/20 07:36 98.7 F 80 18 168/84 H 100 Weight Admit Weight 183 lb 8 oz Weight 183 lb 8 oz I&O: 04/27/20 04/28/20 04/29/20 06:59 06:59 06:59 Intake Total 1800 2060 1400 Output Total 500 1950 600 Balance 1300 110 800 Result Diagrams: 04/28/20 06:10 04/28/20 06:10 Hospitalist ROS - Review of Systems Respiratory: denies: cough, dry, shortness of breath, hemoptysis, SOB with excertion, pleuritic pain, sputum, wheezing, other Cardiovascular: denies: chest pain, palpitations, orthopnea, paroxysmal noc. dyspnea, edema, light headedness, other - Medication Medications: Active Medications Generic Name Dose Route Start Last Admin Trade Name Freq PRN Reason Stop Dose Admin Acetaminophen 1,000 mg 04/22/20 13:27 04/23/20 05:41 Acetaminophen 500 Mg Tab PO 1,000 mg Q6H PRN Administration Moderate to Severe Pain (6-10) Hydrocodone Bitart/Acetaminophen 1 tab 04/22/20 16:54 04/26/20 04:08 Hydrocodone/Acetaminophen 5/325 Mg Tablet PO 1 tab Q4H PRN Administration Mild-Moderate Pain (1-5) Hydrocodone Bitart/Acetaminophen 2 tab 04/22/20 16:54 04/28/20 12:27 Hydrocodone/Acetaminophen 5/325 Mg Tablet PO 2 tab Q4H PRN Administration Severe Pain (7-10) Calcium/Vitamin D 1 tab 04/27/20 17:00 04/28/20 18:01 Calcium Carbonate 600 Mg + Vit D Tab PO 1 tab BID-WM SWETA Administration Clobetasol Propionate 0 gm 04/25/20 21:00 04/28/20 08:12 Clobetasol 0.05% Cream 15 Gm Tube TOP 1 applic BID SWETA Administration Cyanocobalamin 1,000 mcg 04/28/20 09:00 04/28/20 08:12 Cyanocobalamin (Vitamin B-12) 1,000 Mcg Tab PO 1,000 mcg DAILY SWETA Administration Fentanyl 25 mcg 04/21/20 22:41 04/28/20 10:57 Fentanyl 100 Mcg/2 Ml Vial SLOW IVP 25 mcg Q2H PRN Administration Pain Folic Acid 1 mg 04/27/20 09:00 04/28/20 08:12 Folic Acid 1 Mg Tab PO 1 mg BID SWETA Administration Sodium Chloride 1,000 mls @ 60 mls/hr 04/21/20 22:15 04/28/20 03:41 Normal Saline 0.9% IV 1,000 mls .[id number] SWETA Administration Lorazepam 1 mg 04/24/20 21:00 04/28/20 08:12 Lorazepam 1 Mg Tab PO 1 mg BID SWETA Administration Methylprednisolone Sodium Succinate 20 mg 04/25/20 06:00 04/28/20 14:17 Methylprednisolone Sod Succ 40 Mg Vial IVP 20 mg Q8HR SWETA Administration Multivitamins 1 tab 04/27/20 09:00 04/28/20 08:12 Multivit, Therapeutic 1 Tab PO 1 tab DAILY SWETA Administration Ondansetron HCl 4 mg 04/22/20 12:04 04/28/20 12:26 Ondansetron Pf 4 Mg/2 Ml Vial IVP 4 mg Q6H PRN Administration Nausea/Vomiting Pantoprazole Sodium 40 mg 04/27/20 09:00 04/28/20 08:12 Pantoprazole 40 Mg Tab PO 40 mg DAILY SWETA Administration Sodium Chloride 10 ml 04/22/20 09:00 04/28/20 10:59 Flush - Normal Saline 10 Ml Syringe IVF 10 ml Q12HR SWETA Administration - Exam General Appearance: NAD Heart: RRR, no gallops Respiratory: no wheezes, no ronchi Gastrointestinal: soft, normal bowel sounds, no guarding, no rigidity Extremities: no cyanosis Neurological: no new deficit Psychiatric: normal affect, A&O x 3 Hosp A/P - Plan DVT proph w/SCDs Crohn's disease with Crohn's colitis/colon ulcers causing GI bleeding 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 Continue methylprednisolone with PPIs. Continue wound care. Quantififeron level pending. Hematochezia resolved. Continue other medications as above. Continue physical therapy/occupational therapy. [facility] eval
[2020-04-29] MEDS: Ondansetron PF 4 MG/2 ML Vial IVP PRN (04:38)
[2020-04-29] MEDS: HYDROcodone/Acetaminophen 5/325 mg Tablet PO PRN ×4 (04:38→17:57)
[2020-04-29] MEDS: Sodium Chloride 0.9% 1,000 ML IV SCH ×3 (04:41→17:59)
[2020-04-29] MEDS: methylPREDNISolone Sod Succ 40 MG VIAL IVP SCH ×3 (05:52→23:01)
[2020-04-29 06:15] LABS: #Lymphocytes 1.9 thou/uL (1.20-3.40); #Monocytes 0.4 thou/uL (0.11-0.59); #Neutrophils 4.4 thou/uL (1.40-6.50); %Basophils 0.3 % (0.0-1.0); %Eosinophils 0.3 % (0.0-10.0); %Monocytes 6.4 % (0.0-10.0); Hemoglobin 8.4 g/dL (12.0-16.0); Mean Corpuscular HGB CONC 31.9 g/dL (32.0-36.0); Mean Corpuscular Hemoglobin 29.7 pg (27.0-31.0); Mean Corpuscular Volume 92.9 fL (78.0-98.0); Platelet Count 507 thou/uL (130-400); RBC Distribution Width 16.4 % (11.5-14.5); Red Blood Cell (RBC) Count 2.82 mill/uL (4.20-5.40); White Blood Cell (WBC) Count 6.7 thou/uL (4.8-10.8)
[2020-04-29 06:35] LABS: ALT (SGPT) 11 U/L (8-55); AST (SGOT) 11 U/L (5-34); Albumin 2.7 g/dL (3.4-4.8); Alkaline Phosphatase 97 U/L (40-110); Anion Gap 12 mmol/L (10-20); BUN (Urea Nitrogen) 15 mg/dL (9.8-20.1); Bilirubin, Total 0.2 mg/dL (0.2-1.2); Calc. Creatinine Clearance 108 mL/min (70-130); Calcium 8.7 mg/dL (7.8-10.44); Carbon Dioxide 31 mmol/L (23-31); Chloride 99 mmol/L (98-107); Globulin 3.1 g/dL (2.4-3.5); Glucose 147 mg/dL (80-115); Phosphorus 4.1 mg/dL (2.3-4.7); Potassium 4.3 mmol/L (3.5-5.1); Protein, Total 5.8 g/dL (6.0-8.3); Sodium 138 mmol/L (136-145)
[2020-04-29] MEDS: Multivit, Therapeutic 1 TAB PO SCH (08:41)
[2020-04-29] MEDS: Folic Acid 1 MG TAB PO SCH ×2 (08:41→23:00)
[2020-04-29] MEDS: Calcium Carbonate 600 MG + Vit D TAB PO SCH ×2 (08:41→17:58)
[2020-04-29] MEDS: Cyanocobalamin (Vitamin B-12) 1,000 MCG TAB PO SCH (08:41)
[2020-04-29] MEDS: Lorazepam 1 MG TAB PO SCH ×2 (08:41→23:00)
[2020-04-29] MEDS: Clobetasol 0.05% Cream 15 gm Tube TOP SCH ×2 (08:43→23:00)
[2020-04-29 10:14] LABS: CMV DNA-PCR Test Negative (Negative)
--- NOTE | 2020-04-29 13:34 | PRG ---
DATE OF SERVICE: 04/29/2020 SUBJECTIVE: The patient reports diarrhea continues. There is significant urgency. She has had 5 loose bowel movements so far today with a bit of blood tinge. She is not having any significant abdominal pain or nausea. She is eating solid food. OBJECTIVE: VITAL SIGNS: Temperature 97.5, pulse 82, blood pressure 156/83, and 99% oxygen saturation on room air. GENERAL: In no acute distress. HEART: Regular rate and rhythm. LUNGS: Clear to auscultation bilaterally. ABDOMEN: Soft. Bowel sounds present. Minimal tenderness to palpation in the lower abdomen. No guarding or rebound tenderness. EXTREMITIES: No peripheral edema. LABORATORY STUDIES: WBC 6.7, hemoglobin 8.4, platelets 507. Sodium 138, potassium 4.3, BUN 15, creatinine 0.68, total bilirubin 0.2, alkaline phosphatase 97, AST 11, ALT 11, and albumin 2.7. QuantiFERON still pending. CMV DNA is negative. Fungal cultures are pending. Fungal stain is negative. Entamoeba, O and P, P-ANCA are all pending. ASSESSMENT AND PLAN: 1. Crohn colitis, severe. 2. Hematochezia. The patient continues to have diarrhea with dietary advancement, on IV steroids. We will continue this for now. QuantiFERON is still pending. I agree with Dr. Urrutia that the patient is going to need to start on anti-TNF therapy. We discussed Humira versus Remicade, and the patient is leaning toward Remicade, but has not yet made a final decision. If the QuantiFERON comes back negative, this could potentially be started in the hospital as Renflexis (biosimilar). If not and the symptoms are manageable, she could be transitioned to oral steroids, with plan for close followup in the GI Clinic with Dr. Urrutia, and starting infliximab as an outpatient. For now, continue with the IV steroids. Job ID: [id number]
[2020-04-29 15:15] LABS: Cytoplasmic (C-ANCA) <1:20 titer (Neg:<1:20); Myeloperoxidase AutoAbs <9.0 U/mL (0.0-9.0); Perinuclear (P-ANCA) <1:20 titer (Neg:<1:20); Proteinase-3 AutoAbs Less than 3.5 U/mL (0.0-3.5)
--- NOTE | 2020-04-29 16:30 | PRG ---
DATE OF SERVICE: 04/29/2020 SUBJECTIVE: She is having problems with her perineal area from diarrhea macerations. Otherwise, she feels okay. She has had a lot of pain for wound care changes. No respiratory symptoms or abdominal pain. No diarrhea. OBJECTIVE: VITAL SIGNS: She has been afebrile, blood pressure 170/97, heart rate 78, respiratory rate 16, and O2 saturation 99. GENERAL: Appears in no distress. LUNGS: Clear. HEART: S1 and S2, regular rate. ABDOMEN: Soft, not distended. EXTREMITIES: Right and left feet with negative pressure dressings. Perineal maceration. LABORATORY DATA: WBC 6.7, hemoglobin 8.4, and platelets 507. CMV, DNA, Ultra Quant was negative. Histolytica negative. Cultures from the foot, negative. Blood cultures negative. 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 The patient to continue on immunosuppressive treatments plus wound care. Eventual transition to TNF inhibitor. Job ID: [id number]
--- NOTE | 2020-04-29 20:45 | PDOC.HOSPP ---
- Subjective Encounter Date: 04/29/20 Encounter Time: 13:00 Subjective: Patient seen and examined for colitis with bilateral lower extremity skin lesions. Has intermittent abdominal cramping with 3-4 episodes of small loose stool. Denies significant hematocele or melena. No fever or chills reported. - Objective Vital Signs & Weight: Vital Signs (12 hours) Temp Pulse Resp BP Pulse Ox 04/29/20 19:34 98.6 F 75 20 128/73 99 04/29/20 16:00 98.4 F 88 16 144/75 H 98 04/29/20 12:00 98.4 F 78 16 176/97 H 99 Weight Admit Weight 183 lb 8 oz Weight 183 lb 8 oz I&O: 04/28/20 04/29/20 04/30/20 06:59 06:59 06:59 Intake Total 2060 1400 1260 Output Total 2030 635 7601 Balance 110 600 240 Result Diagrams: 04/29/20 05:50 04/29/20 05:50 Hospitalist ROS - Review of Systems Respiratory: denies: cough, dry, shortness of breath, hemoptysis, SOB with excertion, pleuritic pain, sputum, wheezing, other Cardiovascular: denies: chest pain, palpitations, orthopnea, paroxysmal noc. dyspnea, edema, light headedness, other - Medication Medications: Active Medications Generic Name Dose Route Start Last Admin Trade Name Freq PRN Reason Stop Dose Admin Acetaminophen 1,000 mg 04/22/20 13:27 04/23/20 05:41 Acetaminophen 500 Mg Tab PO 1,000 mg Q6H PRN Administration Moderate to Severe Pain (6-10) Hydrocodone Bitart/Acetaminophen 1 tab 04/22/20 16:54 04/26/20 04:08 Hydrocodone/Acetaminophen 5/325 Mg Tablet PO 1 tab Q4H PRN Administration Mild-Moderate Pain (1-5) Hydrocodone Bitart/Acetaminophen 2 tab 04/22/20 16:54 04/29/20 17:57 Hydrocodone/Acetaminophen 5/325 Mg Tablet PO 2 tab Q4H PRN Administration Severe Pain (7-10) Calcium/Vitamin D 1 tab 04/27/20 17:00 04/29/20 17:58 Calcium Carbonate 600 Mg + Vit D Tab PO 1 tab BID-WM SWETA Administration Clobetasol Propionate 0 gm 04/25/20 21:00 04/29/20 08:43 Clobetasol 0.05% Cream 15 Gm Tube TOP 1 applic BID SWETA Administration Cyanocobalamin 1,000 mcg 04/28/20 09:00 04/29/20 08:41 Cyanocobalamin (Vitamin B-12) 1,000 Mcg Tab PO 1,000 mcg DAILY SWETA Administration Fentanyl 25 mcg 04/21/20 22:41 04/28/20 10:57 Fentanyl 100 Mcg/2 Ml Vial SLOW IVP 25 mcg Q2H PRN Administration Pain Folic Acid 1 mg 04/27/20 09:00 04/29/20 08:41 Folic Acid 1 Mg Tab PO 1 mg BID SWETA Administration Sodium Chloride 1,000 mls @ 60 mls/hr 04/21/20 22:15 04/29/20 17:59 Normal Saline 0.9% IV 1,000 mls .[id number] SWETA Administration Lorazepam 1 mg 04/24/20 21:00 04/29/20 08:41 Lorazepam 1 Mg Tab PO 1 mg BID SWETA Administration Methylprednisolone Sodium Succinate 20 mg 04/25/20 06:00 04/29/20 13:02 Methylprednisolone Sod Succ 40 Mg Vial IVP 20 mg Q8HR SWETA Administration Multivitamins 1 tab 04/27/20 09:00 04/29/20 08:41 Multivit, Therapeutic 1 Tab PO 1 tab DAILY SWETA Administration Ondansetron HCl 4 mg 04/22/20 12:04 04/29/20 04:38 Ondansetron Pf 4 Mg/2 Ml Vial IVP 4 mg Q6H PRN Administration Nausea/Vomiting Pantoprazole Sodium 40 mg 04/27/20 09:00 04/29/20 08:41 Pantoprazole 40 Mg Tab PO 40 mg DAILY SWETA Administration Sodium Chloride 10 ml 04/22/20 09:00 04/29/20 08:42 Flush - Normal Saline 10 Ml Syringe IVF 10 ml Q12HR SWETA Administration - Exam General Appearance: NAD Neck: supple, no JVD Heart: RRR, no gallops Respiratory: no wheezes, no ronchi Gastrointestinal: soft, non-distended, no guarding, no rigidity Extremities: no cyanosis, no clubbing Skin: normal turgor Skin - other findings: Bilateral lower extremity wound VAC Hosp A/P - Plan Severe Crohn's colitis/colon ulcers causing GI bleeding 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 Continue IV Solu-Medrol. Continue wound care. technology services manager working on [facility] placement. Quantiferon level pending. Await other stool studies. Monitor labs and electrolytes every other day.
[2020-04-30] MEDS: HYDROcodone/Acetaminophen 5/325 mg Tablet PO PRN ×4 (03:07→22:09)
[2020-04-30] MEDS: Ondansetron PF 4 MG/2 ML Vial IVP PRN (03:12)
[2020-04-30] MEDS: methylPREDNISolone Sod Succ 40 MG VIAL IVP SCH ×3 (06:52→22:06)
[2020-04-30] MEDS: Sodium Chloride 0.9% 1,000 ML IV SCH ×2 (07:35→10:38)
[2020-04-30] MEDS: Multivit, Therapeutic 1 TAB PO SCH (08:36)
[2020-04-30] MEDS: Cyanocobalamin (Vitamin B-12) 1,000 MCG TAB PO SCH (08:37)
[2020-04-30] MEDS: Lorazepam 1 MG TAB PO SCH ×2 (08:37→22:05)
[2020-04-30] MEDS: Calcium Carbonate 600 MG + Vit D TAB PO SCH ×2 (08:37→17:55)
[2020-04-30] MEDS: Clobetasol 0.05% Cream 15 gm Tube TOP SCH ×2 (08:37→22:11)
[2020-04-30] MEDS: Folic Acid 1 MG TAB PO SCH ×2 (08:37→22:05)
[2020-04-30] MEDS: Fentanyl 100 MCG/2 ML VIAL SLOW IVP PRN (09:20)
[2020-04-30] MEDS: Lidocaine 4% Topical Sol 50 ML BOT TOP PRN (09:23)
[2020-04-30] MEDS ORDERED: Lidocaine 1% w/Epinephrine 1:100K 20 ML VIAL ONE (09:41)
[2020-04-30] MEDS ORDERED: Lidocaine 1% w/Epinephrine 1:100K 20 ML VIAL FS SCH (10:30)
--- NOTE | 2020-04-30 10:36 | PRG ---
DATE OF SERVICE: 04/30/2020 SUBJECTIVE: Today, Ms. Vargas Luna's wound VAC was changed on her feet. Her wounds are granulating over her dorsum of her right foot. She, however, has a small pinpoint opening with purulent discharge. This had been cultured yesterday by Wound Care. After informed consent, alcohol prep, local anesthetic, 1% Xylocaine with epinephrine infiltrated in the skin and subcutaneous tissue and a small 2 cm incision made, unroofing this abscess, evacuating purulent material over this. The patient tolerated the procedure well. ASSESSMENT/PLAN: Pyogenic granulomas wounds related to her Crohn disease. Her abdomen is becoming softer, less tender, although, she has not walked. She states because her abdomen hurts, I have encouraged her to walk. She can weightbear as tolerated on her feet. At this point, I will continue to follow her and once discharged home, she can follow up in my office. Hopefully, she will not need colon resection and as hopefully, this will respond to medical therapy. Job ID: [id number]
[2020-04-30 12:14] LABS: Routine O & P Final report (.)
--- NOTE | 2020-04-30 18:54 | PRG ---
DATE OF SERVICE: 04/30/2020 SUBJECTIVE: Ms. Kaye is still having diarrhea. She still complains of left lower quadrant pain. She has less bleeding, but she is vague about that. MEDICATIONS: She continues on 1. Acetaminophen. 2. Calcium carbonate. 3. B12. 4. Folic acid. 5. P.r.n. hydrocodone. 6. P.r.n. Ativan. 7. Prednisone 20 IV q.8. 8. Normal saline 60 an hour. 9. Low-sodium diet. PHYSICAL EXAMINATION: VITAL SIGNS: Temperature 98, pulse 87, blood pressure 157/73. LUNGS: Clear. HEART: Regular without clicks or murmurs. ABDOMEN: Soft, mildly tender in the left lower quadrant. No rebound. No guarding. LABORATORY STUDIES: Electrolytes on 04/29 normal. CBC on 04/29: White count was 6.7, hemoglobin 8.4, platelet count of 507 and climbing. ASSESSMENT: 1. Severe colitis, sigmoid colon, likely Crohn's, nearly perforated. 2. 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 3. I do not think her bowel disease is improving. She has a very elevated platelet count which is going higher and she is still having diarrhea. RECOMMENDATIONS: 1. I have recommended the patient she start Humira or its biosimilar equivalent MARY. I recommended starting it tonight. I told her I think that she has a 50% chance of responding to that and if she does not respond to that, she is going to need a colectomy and colostomy, descending. Again, she was told every physician is taking care of her for the 10 days she has been here. She has to think about it and wants to talk with her in the morning. I have informed her family who is here at the bedside, this is quite serious. She is a very severe case of inflammatory bowel disease and it is not going to improve with steroids. In fact she just does not want to do the biologic therapy, which has been explained to her in detail several times this admission that it would be better for her to move on with surgery quickly rather than stay on high-dose steroids for several more days, which would increase her risk of postoperative complications. She states she is going to talk to her again in the morning and make a decision tomorrow. I did answer questions about her drug and possible response rates of the medication and possible side effects with the patient's family. We will recheck labs tomorrow. 2. Unfortunately, her QuantiFERON was not sent out, the lab reports that it was not run. This was ordered last week on the and this is when it was first put in the computer that I have seen today. I have called the Lab, the computer systems apparently are down, and they cannot give an explanation, it has been reordered for tomorrow morning. I have talked with Infectious Disease, Dr. Moon. He does not feel that we need to wait for a QuantiFERON to start the Humira or bioequivalent. Job ID: [id number]
--- NOTE | 2020-04-30 20:17 | PDOC.HOSPP ---
- Subjective Encounter Date: 04/30/20 Encounter Time: 09:00 Subjective: Patient seen and examined for Crohn's colitis with skin lesions. Some discomfort over the bilateral foot wounds. Denies any fever, chest pain or shortness of breath. Poor appetite. Some loose stool. - Objective Vital Signs & Weight: Vital Signs (12 hours) Temp Pulse Resp BP Pulse Ox 04/30/20 19:38 98.7 F 83 16 143/77 H 99 Weight Admit Weight 183 lb 8 oz Weight 183 lb 8 oz I&O: 04/29/20 04/30/20 05/01/20 06:59 06:59 06:59 Intake Total 1400 2480 1380 Output Total 800 1870 400 Balance 600 610 980 Result Diagrams: 04/29/20 05:50 04/29/20 05:50 Hospitalist ROS - Review of Systems Respiratory: denies: cough, dry, shortness of breath, hemoptysis, SOB with excertion, pleuritic pain, sputum, wheezing, other Cardiovascular: denies: chest pain, palpitations, orthopnea, paroxysmal noc. dyspnea, edema, light headedness, other - Medication Medications: Active Medications Generic Name Dose Route Start Last Admin Trade Name Freq PRN Reason Stop Dose Admin Acetaminophen 1,000 mg 04/22/20 13:27 04/23/20 05:41 Acetaminophen 500 Mg Tab PO 1,000 mg Q6H PRN Administration Moderate to Severe Pain (6-10) Hydrocodone Bitart/Acetaminophen 1 tab 04/22/20 16:54 04/26/20 04:08 Hydrocodone/Acetaminophen 5/325 Mg Tablet PO 1 tab Q4H PRN Administration Mild-Moderate Pain (1-5) Hydrocodone Bitart/Acetaminophen 2 tab 04/22/20 16:54 04/30/20 15:20 Hydrocodone/Acetaminophen 5/325 Mg Tablet PO 2 tab Q4H PRN Administration Severe Pain (7-10) Calcium/Vitamin D 1 tab 04/27/20 17:00 04/30/20 17:55 Calcium Carbonate 600 Mg + Vit D Tab PO 1 tab BID-WM SWETA Administration Clobetasol Propionate 0 gm 04/25/20 21:00 04/30/20 08:37 Clobetasol 0.05% Cream 15 Gm Tube TOP 1 applic BID SWETA Administration Cyanocobalamin 1,000 mcg 04/28/20 09:00 04/30/20 08:37 Cyanocobalamin (Vitamin B-12) 1,000 Mcg Tab PO 1,000 mcg DAILY SWETA Administration Fentanyl 25 mcg 04/21/20 22:41 04/30/20 09:20 Fentanyl 100 Mcg/2 Ml Vial SLOW IVP 25 mcg Q2H PRN Administration Pain Folic Acid 1 mg 04/27/20 09:00 04/30/20 08:37 Folic Acid 1 Mg Tab PO 1 mg BID SWETA Administration Sodium Chloride 1,000 mls @ 60 mls/hr 04/21/20 22:15 04/30/20 10:38 Normal Saline 0.9% IV 1,000 mls .[id number] SWETA Administration Lidocaine HCl 0 ml 04/28/20 08:58 04/30/20 09:23 Lidocaine 4% Topical Migdalia 50 Ml Bot TOP 1 applic PRN PRN Administration DRESSING CHANGES Lorazepam 1 mg 04/24/20 21:00 04/30/20 08:37 Lorazepam 1 Mg Tab PO 1 mg BID SWETA Administration Methylprednisolone Sodium Succinate 20 mg 04/25/20 06:00 04/30/20 14:55 Methylprednisolone Sod Succ 40 Mg Vial IVP 20 mg Q8HR SWETA Administration Multivitamins 1 tab 04/27/20 09:00 04/30/20 08:36 Multivit, Therapeutic 1 Tab PO 1 tab DAILY SWETA Administration Ondansetron HCl 4 mg 04/22/20 12:04 04/30/20 03:12 Ondansetron Pf 4 Mg/2 Ml Vial IVP 4 mg Q6H PRN Administration Nausea/Vomiting Pantoprazole Sodium 40 mg 04/27/20 09:00 04/30/20 08:37 Pantoprazole 40 Mg Tab PO 40 mg DAILY SWETA Administration Sodium Chloride 10 ml 04/22/20 09:00 04/30/20 08:37 Flush - Normal Saline 10 Ml Syringe IVF 10 ml Q12HR SWETA Administration - Exam General Appearance: ill appearing Neck: supple, no JVD Heart: no gallops, no rubs Respiratory: no wheezes, no rales Gastrointestinal: soft, normal bowel sounds, no guarding, no rigidity Extremities: no cyanosis Extremities - other findings: Bilateral lower extremity dressing Neurological: no new deficit Hosp A/P - Plan DVT proph w/SCDs Severe Crohn's colitis/colon ulcers causing GI bleeding 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 Continue gentle hydration. Continue bilateral lower ex tremity wound care. QuantiFERON testing negative. Continue physical therapy. No heparin or Lovenox due to anemia/GI bleeding. Patient was encouraged to ambulate.
[2020-05-01] MEDS: Sodium Chloride 0.9% 1,000 ML IV SCH ×2 (02:41→14:46)
[2020-05-01] MEDS: HYDROcodone/Acetaminophen 5/325 mg Tablet PO PRN ×5 (03:40→20:16)
[2020-05-01 06:10] LABS: #Basophils 0.1 thou/uL (0.0-0.2); #Eosinphils 0.1 thou/uL (0.0-0.7); #Lymphocytes 1.5 thou/uL (1.20-3.40); #Monocytes 0.5 thou/uL (0.11-0.59); #Neutrophils 4.2 thou/uL (1.40-6.50); %Basophils 1.4 % (0.0-1.0); %Monocytes 7.7 % (0.0-10.0); %Neutrophils 65.9 % (42.0-75.0); Hemoglobin 8.4 g/dL (12.0-16.0); Mean Corpuscular HGB CONC 32.2 g/dL (32.0-36.0); Mean Corpuscular Hemoglobin 30.6 pg (27.0-31.0); Mean Platelet Volume 7.2 fL (7.4-10.4); Platelet Count 411 thou/uL (130-400); RBC Distribution Width 17.3 % (11.5-14.5); Red Blood Cell (RBC) Count 2.75 mill/uL (4.20-5.40); White Blood Cell (WBC) Count 6.3 thou/uL (4.8-10.8)
[2020-05-01] MEDS: methylPREDNISolone Sod Succ 40 MG VIAL IVP SCH ×3 (07:48→22:55)
--- NOTE | 2020-05-01 07:50 | OP ---
DATE OF PROCEDURE: 04/30/2020 PREOPERATIVE DIAGNOSIS: Right foot dorsum abscess, status post incision and drainage and debridement. Other wounds, the right and left feet, related to her Crohn disease. POSTOPERATIVE DIAGNOSES: Right foot dorsum abscess, status post incision and drainage and debridement. Other wounds, the right and left feet, related to her Crohn disease. PROCEDURE PERFORMED: Incision and drainage of the abscess, dorsum of distal foot. Cultures performed yesterday by Wound Care. DESCRIPTION OF PROCEDURE: With the patient at bedside in her room, her wound VACs have been removed. She had a small abscess over the dorsum of her foot with a pinhole opening with purulent drainage. After informed consent and alcohol prep, local anesthetic with 1% Xylocaine infiltrated in the skin and subcutaneous tissue. Skin was very thin. A small opening was made about 2.5 cm and purulent material evacuated and Wound Care will apply dressings. The patient tolerated the procedure well. Job ID: [id number]
[2020-05-01] MEDS: Calcium Carbonate 600 MG + Vit D TAB PO SCH ×2 (08:42→16:13)
[2020-05-01] MEDS: Lorazepam 1 MG TAB PO SCH ×2 (08:42→20:16)
[2020-05-01] MEDS: Multivit, Therapeutic 1 TAB PO SCH (08:43)
[2020-05-01] MEDS: Folic Acid 1 MG TAB PO SCH ×2 (08:43→20:16)
[2020-05-01] MEDS: Cyanocobalamin (Vitamin B-12) 1,000 MCG TAB PO SCH (08:43)
[2020-05-01] MEDS: Clobetasol 0.05% Cream 15 gm Tube TOP SCH ×2 (08:44→20:17)
--- NOTE | 2020-05-01 19:39 | PDOC.HOSPP ---
- Subjective Encounter Date: 05/01/20 Encounter Time: 09:30 Subjective: Patient seen and examined for Crohn's colitis. Continues to have diarrhea. Abdominal pain gradually worsening. Denies any fever or chills. Some nausea. - Objective Vital Signs & Weight: Weight Admit Weight 183 lb 8 oz Weight 183 lb 8 oz I&O: 04/30/20 05/01/20 05/02/20 06:59 06:59 06:59 Intake Total 2480 1380 1700 Output Total 1870 1500 1310 Balance 610 -120 390 Result Diagrams: 05/01/20 05:56 04/29/20 05:50 Additional Labs: Abnormal Lab Results - Last 48 hrs 05/01/20 05:56: C-Reactive Protein 1.57 H 05/01/20 05:56: RBC 2.75 L, Hgb 8.4 L, Hct 26.2 L, RDW 17.3 H, Plt Count 411 H, MPV 7.2 L, Basophils % 1.4 H Microbiology - Entire Visit 04/30/20 10:06 Foot - Right Bacterial Culture - Preliminary 04/22/20 15:33 Foot - Right Bacterial Culture - Final 04/22/20 15:33 Foot - Right Anaerobic Culture - Final NO ANAEROBES ISOLATED IN 5 DAYS 04/21/20 15:10 Venous blood - Left Arm Blood Culture - Final NO GROWTH IN 5 DAYS 04/21/20 15:10 Venous blood - Right Hand Blood Culture - Final NO GROWTH IN 5 DAYS 04/22/20 15:33 Ankle - Left Bacterial Culture - Final 04/22/20 15:33 Ankle - Left Anaerobic Culture - Final 04/23/20 21:25 Stool - Liquid Rapid Parasite Screen - Final Hospitalist ROS - Review of Systems Respiratory: denies: cough, dry, shortness of breath, hemoptysis, SOB with excertion, pleuritic pain, sputum, wheezing, other Cardiovascular: denies: chest pain, palpitations, orthopnea, paroxysmal noc. dyspnea, edema, light headedness, other - Medication Medications: Active Medications Generic Name Dose Route Start Last Admin Trade Name Freq PRN Reason Stop Dose Admin Acetaminophen 1,000 mg 04/22/20 13:27 04/23/20 05:41 Acetaminophen 500 Mg Tab PO 1,000 mg Q6H PRN Administration Moderate to Severe Pain (6-10) Hydrocodone Bitart/Acetaminophen 1 tab 04/22/20 16:54 05/01/20 12:38 Hydrocodone/Acetaminophen 5/325 Mg Tablet PO 1 tab Q4H PRN Administration Mild-Moderate Pain (1-5) Hydrocodone Bitart/Acetaminophen 2 tab 04/22/20 16:54 05/01/20 16:13 Hydrocodone/Acetaminophen 5/325 Mg Tablet PO 2 tab Q4H PRN Administration Severe Pain (7-10) Calcium/Vitamin D 1 tab 04/27/20 17:00 05/01/20 16:13 Calcium Carbonate 600 Mg + Vit D Tab PO 1 tab BID-WM SWETA Administration Clobetasol Propionate 0 gm 04/25/20 21:00 05/01/20 08:44 Clobetasol 0.05% Cream 15 Gm Tube TOP 1 applic BID SWETA Administration Cyanocobalamin 1,000 mcg 04/28/20 09:00 05/01/20 08:43 Cyanocobalamin (Vitamin B-12) 1,000 Mcg Tab PO 1,000 mcg DAILY SWETA Administration Fentanyl 25 mcg 04/21/20 22:41 04/30/20 09:20 Fentanyl 100 Mcg/2 Ml Vial SLOW IVP 25 mcg Q2H PRN Administration Pain Folic Acid 1 mg 04/27/20 09:00 05/01/20 08:43 Folic Acid 1 Mg Tab PO 1 mg BID SWETA Administration Sodium Chloride 1,000 mls @ 60 mls/hr 04/21/20 22:15 05/01/20 14:46 Normal Saline 0.9% IV Not Given .[id number] SWETA Lidocaine HCl 0 ml 04/28/20 08:58 04/30/20 09:23 Lidocaine 4% Topical Migdalia 50 Ml Bot TOP 1 applic PRN PRN Administration DRESSING CHANGES Lorazepam 1 mg 04/24/20 21:00 05/01/20 08:42 Lorazepam 1 Mg Tab PO 1 mg BID SWETA Administration Methylprednisolone Sodium Succinate 20 mg 04/25/20 06:00 05/01/20 15:10 Methylprednisolone Sod Succ 40 Mg Vial IVP 20 mg Q8HR SWETA Administration Multivitamins 1 tab 04/27/20 09:00 05/01/20 08:43 Multivit, Therapeutic 1 Tab PO 1 tab DAILY SWETA Administration Ondansetron HCl 4 mg 04/22/20 12:04 04/30/20 03:12 Ondansetron Pf 4 Mg/2 Ml Vial IVP 4 mg Q6H PRN Administration Nausea/Vomiting Pantoprazole Sodium 40 mg 04/27/20 09:00 05/01/20 08:43 Pantoprazole 40 Mg Tab PO 40 mg DAILY SWETA Administration Sodium Chloride 10 ml 04/22/20 09:00 05/01/20 08:44 Flush - Normal Saline 10 Ml Syringe IVF 10 ml Q12HR SWETA Administration - Exam General Appearance: ill appearing Neck: supple, no JVD Heart: RRR, no gallops Respiratory: no wheezes, no ronchi Gastrointestinal: soft, normal bowel sounds, no guarding, no rigidity, tender to palpation Extremities: no cyanosis Hosp A/P - Plan DVT proph w/SCDs (No Lovenox or heparin due to anemia/GI bleeding) Severe Crohn's colitis/colon ulcers causing GI bleeding 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 Continue gentle hydration. Continue IV steroids. Patient underwent incision and drainage of the right foot dorsum abscess on 04/30. Continue supportive care. A.m. labs. Plan discussed with the patient and the family at the bedside
--- NOTE | 2020-05-01 21:32 | PRG ---
DATE OF SERVICE: 05/01/2020 REASON FOR CONSULTATION: Hematochezia, abdominal pain, and colonoscopy findings consistent with Crohn disease. SUBJECTIVE: The patient did well overnight with no acute events or problems. She continues to have generalized abdominal pain in addition to passing more liquid type stools. However, she currently denies any nausea, vomiting, fevers, chills, hematemesis, or melena. OBJECTIVE: VITAL SIGNS: Temperature 98.8, pulse 82, blood pressure 127/73, respiratory rate 18, and saturating 99% on room air. GENERAL: The patient was lying in bed, in no acute distress. Alert and oriented x4. CARDIOVASCULAR: Regular rate and rhythm. RESPIRATORY: Clear to auscultation bilaterally. ABDOMEN: Normoactive bowel sounds. Soft, nondistended. Tenderness to palpation in the left upper and left lower quadrants. EXTREMITIES: 1+ bilateral extremity edema extending to the knee. LABORATORY DATA: CBC with a white blood cell count of 6.3, hemoglobin 8.4, hematocrit 26.2, and platelets 411. CRP 1.57. Microbiology for Entamoeba histolytica was negative. IMAGING DATA: No current GI imaging is available for review. 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 Now, in addition to extensive skin lesions of the lower extremities, now with probable Crohn disease with extracolonic manifestations including Sweet syndrome. Crohn disease. The patient initially presented with a 5 minutes history of intermittent episodes of hematochezia with CT scan showing the presence of colitis within the distal colon with worsening of her symptoms. She subsequently underwent colonoscopy on April 23, 2020, with findings showing significant ulceration throughout sections of her colon including a very large ulceration in the sigmoid colon that appeared to be near perforating. She was subsequently placed on IV steroids and has had some improvement on this particular modality, but still continues to have abdominal pain and diarrhea associated with this condition. Discussions with the patient in the past have been fairly unfruitful with consideration of placing the patient on biologic therapy versus surgery of the affected colon. Up until now, the patient had been fairly noncommittal, but upon extensive discussion tonight about the risks and benefits of both biologic administration and surgery, the patient is now opting for a biologic administration. Recommendations; 1. Would continue the patient on IV steroids until biologic therapy is initiated. 2. I have contacted the Pharmacy about approval for inpatient administration of Remicade 5 mg/kg in light of her severe Crohn disease of the colon. 3. Pain control per primary team. 4. Antibiotics are not indicated at this time. 5. Continue current diet. 6. After the patient is started on Remicade and her clinical situation is stabilized, she could be potentially discharged to a rehab facility and follow up in the outpatient GI Clinic for further infusions of Remicade and possible placement on azathioprine at that time. We will continue to follow. Please call with any questions. Job ID: [id number]
[2020-05-02] MEDS: HYDROcodone/Acetaminophen 5/325 mg Tablet PO PRN ×3 (00:07→14:51)
[2020-05-02] MEDS: methylPREDNISolone Sod Succ 40 MG VIAL IVP SCH ×3 (05:34→23:13)
[2020-05-02 07:53] LABS: #Lymphocytes 1.4 thou/uL (1.20-3.40); #Monocytes 0.3 thou/uL (0.11-0.59); #Neutrophils 5.5 thou/uL (1.40-6.50); %Basophils 0.4 % (0.0-1.0); %Eosinophils 0.3 % (0.0-10.0); %Monocytes 4.2 % (0.0-10.0); %Neutrophils 76.2 % (42.0-75.0); Hemoglobin 9.3 g/dL (12.0-16.0); Mean Corpuscular Hemoglobin 30.6 pg (27.0-31.0); Mean Corpuscular Volume 95.7 fL (78.0-98.0); Mean Platelet Volume 7.5 fL (7.4-10.4); Platelet Count 417 thou/uL (130-400); RBC Distribution Width 17.3 % (11.5-14.5); Red Blood Cell (RBC) Count 3.03 mill/uL (4.20-5.40); White Blood Cell (WBC) Count 7.3 thou/uL (4.8-10.8)
[2020-05-02 08:17] LABS: Anion Gap 11 mmol/L (10-20); BUN (Urea Nitrogen) 15 mg/dL (9.8-20.1); Calc. Creatinine Clearance 108 mL/min (70-130); Calcium 8.9 mg/dL (7.8-10.44); Carbon Dioxide 31 mmol/L (23-31); Chloride 100 mmol/L (98-107); Glucose 150 mg/dL (80-115); Magnesium 1.9 mg/dL (1.6-2.6); Potassium 4.2 mmol/L (3.5-5.1); Sodium 138 mmol/L (136-145)
[2020-05-02] MEDS: Calcium Carbonate 600 MG + Vit D TAB PO SCH ×2 (08:24→16:45)
[2020-05-02] MEDS: Clobetasol 0.05% Cream 15 gm Tube TOP SCH ×2 (08:25→20:13)
[2020-05-02] MEDS: Cyanocobalamin (Vitamin B-12) 1,000 MCG TAB PO SCH (08:25)
[2020-05-02] MEDS: Lorazepam 1 MG TAB PO SCH ×2 (08:25→20:12)
[2020-05-02] MEDS: Folic Acid 1 MG TAB PO SCH ×2 (08:25→20:12)
[2020-05-02] MEDS: Multivit, Therapeutic 1 TAB PO SCH (08:25)
[2020-05-02] MEDS: Fentanyl 100 MCG/2 ML VIAL SLOW IVP PRN ×2 (13:35→20:15)
[2020-05-02] MEDS: Ondansetron PF 4 MG/2 ML Vial IVP PRN (14:07)
[2020-05-02] MEDS: Lidocaine 4% Topical Sol 50 ML BOT TOP PRN (14:09)
[2020-05-02] MEDS: Sodium Chloride 0.9% 1,000 ML IV SCH (14:11)
--- NOTE | 2020-05-02 16:55 | PRG ---
DATE OF SERVICE: 05/02/2020 REASON FOR CONSULTATION: Hematochezia, abdominal pain, and colonoscopy findings consistent with severe Crohn disease. SUBJECTIVE: The patient did well overnight with no acute events or problems. She continues to have generalized abdominal pain, but states it is improved when compared to previous. She did have approximately 3 to 4 liquid bowel movements yesterday with no difficulty with defecation. With her severe Crohn disease, she was ultimately started on Inflectra 5 mg/kg today and was currently receiving the infusion at the time of this interview. Currently, she denies any nausea, vomiting, fevers, chills, hematemesis, or melena. OBJECTIVE: VITAL SIGNS: Temperature 97.8, pulse 66, blood pressure 126/78, respiratory rate 20, saturating 99% on room air. GENERAL: The patient was lying in bed, in no acute distress. Alert and oriented x4, morbidly obese. CARDIOVASCULAR: Regular rate and rhythm. RESPIRATORY: Clear to auscultation bilaterally. ABDOMEN: Normoactive bowel sounds. Soft, nondistended. Tenderness to palpation in the left lower quadrant only. EXTREMITIES: 1+ bilateral lower extremity edema extending to the knees. LABORATORY DATA: CBC with a white blood cell count of 7.3, hemoglobin 9.3, hematocrit 29, platelets 417. Chemistry with a sodium of 138, potassium 4.2, chloride 100, CO2 of 31, BUN 15, creatinine 0.63, glucose 150. IMAGING DATA: No current GI imaging is available for review. 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 Severe Crohn disease. The patient initially presented with a 5-month history of intermittent episodes of hematochezia, abdominal pain, and a CT scan early this year showing colitis of the distal colon with worsening of her symptoms. She subsequently underwent colonoscopy on April 23, 2020, with endoscopic and histologic findings consistent with severe Crohn disease. Upon discussion of treatment options with the patient's (biologics versus surgery), the patient was fairly noncommittal on the modality she wished to pursue until recently. As such, the patient was started on Inflectra 5 mg/kg earlier today and so far has not had any problems with the infusion. RECOMMENDATIONS: 1. I would continue to monitor the patient over the next few days. If the patient is to have a significant response to the biologic, is usually seen within the next 3 to 5 days. If the patient does not have at least some response within that time period, we could consider dosing her at 10 mg/kg at that time; however, if the patient does respond, then I would recommend normal induction dosing then every 8 weeks after that as part of maintenance therapy. 2. Pain control per primary team. 3. Antibiotics are not indicated at this time. 4. Continue current diet. We will continue to follow. Please call with any questions. Job ID: [id number]
--- NOTE | 2020-05-02 20:47 | PDOC.HOSPP ---
- Subjective Encounter Date: 05/02/20 Encounter Time: 09:00 Subjective: Patient seen and examined for Crohn's colitis with pyoderma gangrenosum. Denies any new complaints. Continues to have loose stool with abdominal cramping. - Objective Vital Signs & Weight: Vital Signs (12 hours) Temp Pulse Resp BP Pulse Ox 05/02/20 19:36 98.8 F 73 20 129/74 100 Weight Admit Weight 183 lb 8 oz Weight 183 lb 8 oz I&O: 05/01/20 05/02/20 05/03/20 06:59 06:59 06:59 Intake Total 1380 3020 2500 Output Total 1500 2260 500 Balance -831 249 0128 Result Diagrams: 05/02/20 07:20 05/02/20 07:20 Hospitalist ROS - Review of Systems Cardiovascular: denies: chest pain, palpitations, orthopnea, paroxysmal noc. dyspnea, edema, light headedness, other Gastrointestinal: denies: nausea, vomiting, abdominal pain, diarrhea, constipation, melena, hematochezia, other - Medication Medications: Active Medications Generic Name Dose Route Start Last Admin Trade Name Freq PRN Reason Stop Dose Admin Acetaminophen 1,000 mg 04/22/20 13:27 04/23/20 05:41 Acetaminophen 500 Mg Tab PO 1,000 mg Q6H PRN Administration Moderate to Severe Pain (6-10) Calcium/Vitamin D 1 tab 04/27/20 17:00 05/02/20 16:45 Calcium Carbonate 600 Mg + Vit D Tab PO 1 tab BID-WM SWETA Administration Clobetasol Propionate 0 gm 04/25/20 21:00 05/02/20 20:13 Clobetasol 0.05% Cream 15 Gm Tube TOP 1 applic BID SWETA Administration Cyanocobalamin 1,000 mcg 04/28/20 09:00 05/02/20 08:25 Cyanocobalamin (Vitamin B-12) 1,000 Mcg Tab PO 1,000 mcg DAILY SWETA Administration Fentanyl 25 mcg 05/02/20 10:32 05/02/20 20:15 Fentanyl 100 Mcg/2 Ml Vial SLOW IVP 05/03/20 10:33 25 mcg Q4H PRN Administration Severe Pain (7-10) Folic Acid 1 mg 04/27/20 09:00 05/02/20 20:12 Folic Acid 1 Mg Tab PO 1 mg BID SWETA Administration Sodium Chloride 1,000 mls @ 60 mls/hr 04/21/20 22:15 05/02/20 14:11 Normal Saline 0.9% IV 1,000 mls .[id number] SWETA Administration Infliximab-DYYB 400 mg/ Sodium 250 mls @ 125 mls/hr 05/02/20 10:30 05/02/20 11:02 Chloride IV 05/02/20 23:59 250 mls NOW SWETA Administration Lidocaine HCl 0 ml 04/28/20 08:58 05/02/20 14:09 Lidocaine 4% Topical Migdalia 50 Ml Bot TOP 1 applic PRN PRN Administration DRESSING CHANGES Lorazepam 1 mg 04/24/20 21:00 05/02/20 20:12 Lorazepam 1 Mg Tab PO 1 mg BID SWETA Administration Methylprednisolone Sodium Succinate 20 mg 04/25/20 06:00 05/02/20 14:13 Methylprednisolone Sod Succ 40 Mg Vial IVP 20 mg Q8HR SWETA Administration Multivitamins 1 tab 04/27/20 09:00 05/02/20 08:25 Multivit, Therapeutic 1 Tab PO 1 tab DAILY SWETA Administration Ondansetron HCl 4 mg 04/22/20 12:04 05/02/20 14:07 Ondansetron Pf 4 Mg/2 Ml Vial IVP 4 mg Q6H PRN Administration Nausea/Vomiting Pantoprazole Sodium 40 mg 04/27/20 09:00 05/02/20 08:24 Pantoprazole 40 Mg Tab PO 40 mg DAILY SWETA Administration Sodium Chloride 10 ml 04/22/20 09:00 05/02/20 08:26 Flush - Normal Saline 10 Ml Syringe IVF 10 ml Q12HR SWETA Administration - Exam General Appearance: NAD Neck: supple, no JVD Heart: RRR, no gallops Respiratory: no rales, no ronchi Gastrointestinal: soft, no guarding, no rigidity Extremities: no cyanosis Extremities - other findings: Bilateral foot dressing Neurological: no new deficit Hosp A/P - Plan Severe Crohn's colitis/colon ulcers causing GI bleeding 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 Continue IV steroids. Continue wound care. Continue fentanyl for pain control. Continue gentle hydration. DVT prophylaxis. Not on heparin or Lovenox due to anemia. Continue folic acid supplementation. A.m. labs.
[2020-05-03] MEDS: Fentanyl 100 MCG/2 ML VIAL SLOW IVP PRN ×2 (02:13→06:32)
[2020-05-03] MEDS: Sodium Chloride 0.9% 1,000 ML IV SCH ×3 (02:14→22:25)
[2020-05-03] MEDS: methylPREDNISolone Sod Succ 40 MG VIAL IVP SCH ×3 (05:19→22:31)
[2020-05-03 05:49] LABS: #Eosinphils 0.1 thou/uL (0.0-0.7); #Lymphocytes 1.7 thou/uL (1.20-3.40); #Monocytes 0.5 thou/uL (0.11-0.59); #Neutrophils 5.5 thou/uL (1.40-6.50); %Basophils 0.4 % (0.0-1.0); %Eosinophils 0.7 % (0.0-10.0); %Lymphocytes 21.8 % (21.0-51.0); %Monocytes 5.9 % (0.0-10.0); %Neutrophils 71.1 % (42.0-75.0); Hemoglobin 8.8 g/dL (12.0-16.0); Mean Corpuscular HGB CONC 30.4 g/dL (32.0-36.0); Mean Corpuscular Hemoglobin 29.2 pg (27.0-31.0); Mean Platelet Volume 7.8 fL (7.4-10.4); Platelet Count 385 thou/uL (130-400); RBC Distribution Width 17.6 % (11.5-14.5); Red Blood Cell (RBC) Count 3.02 mill/uL (4.20-5.40); White Blood Cell (WBC) Count 7.7 thou/uL (4.8-10.8)
[2020-05-03 06:08] LABS: Anion Gap 12 mmol/L (10-20); BUN (Urea Nitrogen) 20 mg/dL (9.8-20.1); Calc. Creatinine Clearance 112 mL/min (70-130); Calcium 9.1 mg/dL (7.8-10.44); Carbon Dioxide 32 mmol/L (23-31); Chloride 98 mmol/L (98-107); Glucose 133 mg/dL (80-115); Sodium 138 mmol/L (136-145)
[2020-05-03] MEDS: Cyanocobalamin (Vitamin B-12) 1,000 MCG TAB PO SCH (08:41)
[2020-05-03] MEDS: Calcium Carbonate 600 MG + Vit D TAB PO SCH ×2 (08:41→16:45)
[2020-05-03] MEDS: Clobetasol 0.05% Cream 15 gm Tube TOP SCH ×2 (08:41→20:21)
[2020-05-03] MEDS: Lorazepam 1 MG TAB PO SCH ×2 (08:41→20:20)
[2020-05-03] MEDS: Multivit, Therapeutic 1 TAB PO SCH (08:41)
[2020-05-03] MEDS: Folic Acid 1 MG TAB PO SCH ×2 (08:41→20:20)
--- NOTE | 2020-05-03 09:18 | PDOC.HOSPP ---
- Subjective Encounter Date: 05/03/20 Subjective: The patient complained of feeling down and asked if her Wellbutrin could be restarted. She also stated that her pain is not well controlled since [facility] has been discontinued. - Objective Vital Signs & Weight: Vital Signs (12 hours) Temp Pulse Resp BP BP Pulse Ox 05/03/20 08:25 97.6 F 72 18 160/89 H 98 05/03/20 04:00 98.5 F 81 20 154/93 H 99 05/02/20 23:27 98.3 F 77 20 128/81 97 Weight Admit Weight 183 lb 8 oz Weight 183 lb 8 oz I&O: 05/02/20 05/03/20 05/04/20 06:59 06:59 06:59 Intake Total 3020 3720 Output Total 2260 1000 Balance 760 2720 Result Diagrams: 05/03/20 05:34 05/03/20 05:34 Hospitalist ROS - Medication Medications: Active Medications Generic Name Dose Route Start Last Admin Trade Name Freq PRN Reason Stop Dose Admin Acetaminophen 1,000 mg 04/22/20 13:27 04/23/20 05:41 Acetaminophen 500 Mg Tab PO 1,000 mg Q6H PRN Administration Moderate to Severe Pain (6-10) Calcium/Vitamin D 1 tab 04/27/20 17:00 05/03/20 08:41 Calcium Carbonate 600 Mg + Vit D Tab PO 1 tab BID-WM SWETA Administration Clobetasol Propionate 0 gm 04/25/20 21:00 05/03/20 08:41 Clobetasol 0.05% Cream 15 Gm Tube TOP 1 applic BID SWETA Administration Cyanocobalamin 1,000 mcg 04/28/20 09:00 05/03/20 08:41 Cyanocobalamin (Vitamin B-12) 1,000 Mcg Tab PO 1,000 mcg DAILY SWETA Administration Fentanyl 25 mcg 05/02/20 10:32 05/03/20 06:32 Fentanyl 100 Mcg/2 Ml Vial SLOW IVP 05/03/20 10:33 25 mcg Q4H PRN Administration Severe Pain (7-10) Folic Acid 1 mg 04/27/20 09:00 05/03/20 08:41 Folic Acid 1 Mg Tab PO 1 mg BID SWETA Administration Sodium Chloride 1,000 mls @ 60 mls/hr 04/21/20 22:15 05/03/20 02:14 Normal Saline 0.9% IV 1,000 mls .[id number] SWETA Administration Lidocaine HCl 0 ml 04/28/20 08:58 05/02/20 14:09 Lidocaine 4% Topical Migdalia 50 Ml Bot TOP 1 applic PRN PRN Administration DRESSING CHANGES Lorazepam 1 mg 04/24/20 21:00 05/03/20 08:41 Lorazepam 1 Mg Tab PO 1 mg BID SWETA Administration Methylprednisolone Sodium Succinate 20 mg 04/25/20 06:00 05/03/20 05:19 Methylprednisolone Sod Succ 40 Mg Vial IVP 20 mg Q8HR SWETA Administration Multivitamins 1 tab 04/27/20 09:00 05/03/20 08:41 Multivit, Therapeutic 1 Tab PO 1 tab DAILY SWETA Administration Ondansetron HCl 4 mg 04/22/20 12:04 05/02/20 14:07 Ondansetron Pf 4 Mg/2 Ml Vial IVP 4 mg Q6H PRN Administration Nausea/Vomiting Pantoprazole Sodium 40 mg 04/27/20 09:00 05/03/20 08:40 Pantoprazole 40 Mg Tab PO 40 mg DAILY SWETA Administration Sodium Chloride 10 ml 04/22/20 09:00 05/03/20 08:42 Flush - Normal Saline 10 Ml Syringe IVF Not Given Q12HR SWETA - Exam General Appearance: awake alert ENT: normocephalic atraumatic Neck: supple, no JVD Heart: RRR Respiratory: normal chest expansion, no tachypnea Gastrointestinal: soft Extremities: no cyanosis Neurological: cranial nerve grossly intact, no weakness Hosp A/P (1) Crohn's disease Code(s): K50.90 - CROHN'S DISEASE, UNSPECIFIED, WITHOUT COMPLICATIONS Status: Acute (2) Pyoderma gangrenosum Code(s): L88 - PYODERMA GANGRENOSUM Status: Acute (3) HTN (hypertension) Code(s): I10 - ESSENTIAL (PRIMARY) HYPERTENSION Status: Acute - Plan This patient is a 64-year-old female with past medical history of hypertension, depression, migraines, esophageal stricture and pancreatic insufficiency who presented to the hospital with hematochezia and worsened dysphagia in addition to lower extremity wounds. CT scan of the abdomen revealed narrowing of a segment in the sigmoid colon with colitis. EGD was performed and was found to be normal. Colonoscopy showed scattered deep ulcers at 40 cm from the anorectal verge and confluent ulcerations 20 cm from the anal rectal verge in addition to severe diverticular disease. Biopsy confirmed chronic colitis consistent with Crohn's disease. The patient underwent amputation of the right great toe due to osteomyelitis and also underwent debridement of 6 x 5 cm necrotic wound in the dorsum of the foot. This ulcer is consistent with pyoderma gangrenosum. The patient has been started on biologic agents per GI.
--- NOTE | 2020-05-03 11:12 | PRG ---
DATE OF SERVICE: 05/03/2020 REASON FOR CONSULTATION: Hematochezia, abdominal pain, and colonoscopy findings consistent with severe Crohn disease. SUBJECTIVE: The patient underwent infusion of Inflectra yesterday with no problems with the infusion nor any reactions to the medication itself. Today, she states that over the last 24 hours, she has had approximately 3 to 4 small volume semi-solid liquid bowel movements, but improved from previous. She denies any further bloody stools, but continues to have generalized abdominal discomfort/pain that is unchanged from previous. Otherwise, she has been able to tolerate a solid diet without difficulty. Currently, she denies any nausea, vomiting, fevers, chills, or GI bleeding. OBJECTIVE: VITAL SIGNS: Temperature 97.6, pulse 72, blood pressure 160/89, respiratory rate 18, and saturating 98% on room air. GENERAL: The patient was lying in bed, in no acute distress. Alert and oriented x4. Morbidly obese. CARDIOVASCULAR: Regular rate and rhythm. RESPIRATORY: Clear to auscultation bilaterally. ABDOMEN: Normoactive bowel sounds. Soft and nondistended. Tenderness to palpation in the left lower quadrant only. EXTREMITIES: 1+ bilateral lower extremity edema extending to the bilateral knees. LABORATORY DATA: CBC with a white blood cell count of 7.7, hemoglobin 8.8, hematocrit 29, and platelets 385. Chemistry with a sodium of 138, potassium 4, chloride 98, CO2 of 32, BUN 20, creatinine 0.66, and glucose 133. IMAGING DATA: No current GI imaging is available for review. 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 Severe Crohn disease. The patient is presenting with a five-month history of intermittent episodes of abdominal pain, diarrhea, and hematochezia with a CT scan earlier this year showing colitis in the distal colon. She subsequently underwent colonoscopy on April 23, 2020, with endoscopic and histologic findings consistent with severe Crohn disease. Subsequently, the patient was started Inflectra (5 mg/kg) on May 02, 2020, and thus far has responded well to therapy with decreased frequency of stools, resolution of her hematochezia, but continued abdominal pain. At this point, I do not see any reason to re-dose her sooner than the two weeks as that will be part of her induction therapy and from a Gastroenterology standpoint, she has not exhibiting any episodes or evidence of perforation or complications that may require further hospitalization at this time. Recommendations; 1. Would continue the patient on Inflectra for the time being with the first dose already given and the next dose of 5 mg/kg given at week two, week six, and then every weeks after that. 2. Pain control per primary team. 3. Continue current diet. 4. Defer wound care of the feet to General Surgery Service/Wound Care team. We will sign off at this time. Please have the patient follow up in the GI Clinic within 1 to 2 weeks of discharge for repeat dosing of her Inflectra and re-evaluation of her current clinical status. Job ID: [id number]
[2020-05-03] MEDS: HYDROcodone/Acetaminophen 5/325 mg Tablet PO PRN ×2 (16:45→20:20)
[2020-05-03] MEDS ORDERED: Bupropion 150 MG XL TAB PO SCH (21:00)
[2020-05-04] MEDS: methylPREDNISolone Sod Succ 40 MG VIAL IVP SCH ×3 (05:11→22:55)
[2020-05-04] MEDS: Folic Acid 1 MG TAB PO SCH ×2 (08:25→20:46)
[2020-05-04] MEDS: Multivit, Therapeutic 1 TAB PO SCH (08:25)
[2020-05-04] MEDS: Calcium Carbonate 600 MG + Vit D TAB PO SCH ×2 (08:25→16:28)
[2020-05-04] MEDS: Cyanocobalamin (Vitamin B-12) 1,000 MCG TAB PO SCH (08:25)
[2020-05-04] MEDS: Lorazepam 1 MG TAB PO SCH ×2 (08:25→20:47)
[2020-05-04] MEDS: Bupropion 150 MG XL TAB PO SCH (08:28)
[2020-05-04] MEDS: HYDROcodone/Acetaminophen 5/325 mg Tablet PO PRN ×3 (08:29→20:46)
[2020-05-04] MEDS: Clobetasol 0.05% Cream 15 gm Tube TOP SCH ×2 (09:00→20:46)
--- NOTE | 2020-05-04 13:59 | PDOC.HOSPP ---
- Subjective Encounter Date: 05/04/20 Subjective: The patient's pain has been more controlled since yesterday. - Objective Vital Signs & Weight: Vital Signs (12 hours) Temp Pulse Resp BP Pulse Ox 05/04/20 07:52 97.7 F 69 20 160/87 H 99 Weight Admit Weight 183 lb 8 oz Weight 183 lb 8 oz I&O: 05/03/20 05/04/20 05/05/20 06:59 06:59 06:59 Intake Total 3720 1800 Output Total 1000 Balance 2720 1800 Result Diagrams: 05/03/20 05:34 05/03/20 05:34 Hospitalist ROS - Medication Medications: Active Medications Generic Name Dose Route Start Last Admin Trade Name Freq PRN Reason Stop Dose Admin Acetaminophen 1,000 mg 04/22/20 13:27 04/23/20 05:41 Acetaminophen 500 Mg Tab PO 1,000 mg Q6H PRN Administration Moderate to Severe Pain (6-10) Hydrocodone Bitart/Acetaminophen 1 tab 05/03/20 15:07 05/03/20 20:20 Hydrocodone/Acetaminophen 5/325 Mg Tablet PO 1 tab Q6H PRN Administration Mild-Moderate Pain (1-5) Hydrocodone Bitart/Acetaminophen 2 tab 05/03/20 19:56 05/04/20 08:29 Hydrocodone/Acetaminophen 5/325 Mg Tablet PO 2 tab Q4H PRN Administration Severe Pain (7-10) Bupropion HCl 150 mg 05/04/20 09:00 05/04/20 08:28 Bupropion 150 Mg Xl Tab PO 150 mg DAILY SWETA Administration Calcium/Vitamin D 1 tab 04/27/20 17:00 05/04/20 08:25 Calcium Carbonate 600 Mg + Vit D Tab PO 1 tab BID-WM SWETA Administration Clobetasol Propionate 0 gm 04/25/20 21:00 05/03/20 20:21 Clobetasol 0.05% Cream 15 Gm Tube TOP 1 applic BID SWETA Administration Cyanocobalamin 1,000 mcg 04/28/20 09:00 05/04/20 08:25 Cyanocobalamin (Vitamin B-12) 1,000 Mcg Tab PO 1,000 mcg DAILY SWETA Administration Folic Acid 1 mg 04/27/20 09:00 05/04/20 08:25 Folic Acid 1 Mg Tab PO 1 mg BID SWETA Administration Sodium Chloride 1,000 mls @ 60 mls/hr 04/21/20 22:15 05/03/20 22:25 Normal Saline 0.9% IV 1,000 mls .[id number] SWETA Administration Lidocaine HCl 0 ml 04/28/20 08:58 05/02/20 14:09 Lidocaine 4% Topical Migdalia 50 Ml Bot TOP 1 applic PRN PRN Administration DRESSING CHANGES Lorazepam 1 mg 04/24/20 21:00 05/04/20 08:25 Lorazepam 1 Mg Tab PO 1 mg BID SWETA Administration Methylprednisolone Sodium Succinate 20 mg 04/25/20 06:00 05/04/20 05:11 Methylprednisolone Sod Succ 40 Mg Vial IVP 20 mg Q8HR SWETA Administration Multivitamins 1 tab 04/27/20 09:00 05/04/20 08:25 Multivit, Therapeutic 1 Tab PO 1 tab DAILY SWETA Administration Ondansetron HCl 4 mg 04/22/20 12:04 05/02/20 14:07 Ondansetron Pf 4 Mg/2 Ml Vial IVP 4 mg Q6H PRN Administration Nausea/Vomiting Pantoprazole Sodium 40 mg 04/27/20 09:00 05/04/20 08:25 Pantoprazole 40 Mg Tab PO 40 mg DAILY SWETA Administration Sodium Chloride 10 ml 04/22/20 09:00 05/04/20 08:25 Flush - Normal Saline 10 Ml Syringe IVF Not Given Q12HR SWETA - Exam General Appearance: awake alert ENT: normocephalic atraumatic Neck: supple, no JVD Heart: RRR Respiratory: normal chest expansion, no tachypnea Gastrointestinal: soft Hosp A/P (1) Crohn's disease Code(s): K50.90 - CROHN'S DISEASE, UNSPECIFIED, WITHOUT COMPLICATIONS Status: Acute (2) Pyoderma gangrenosum Code(s): L88 - PYODERMA GANGRENOSUM Status: Acute (3) HTN (hypertension) Code(s): I10 - ESSENTIAL (PRIMARY) HYPERTENSION Status: Acute - Plan This patient is a 64-year-old female with past medical history of hypertension, depression, migraines, esophageal stricture and pancreatic insufficiency who presented to the hospital with hematochezia and worsened dysphagia in addition to lower extremity wounds. CT scan of the abdomen revealed narrowing of a segment in the sigmoid colon with colitis. EGD was performed and was found to be normal. Colonoscopy showed scattered deep ulcers at 40 cm from the anorectal verge and confluent ulcerations 20 cm from the anal rectal verge in addition to severe diverticular disease. Biopsy confirmed chronic colitis consistent with Crohn's disease. The patient underwent amputation of the right great toe due to osteomyelitis and also underwent debridement of 6 x 5 cm necrotic wound in the dorsum of the foot. This ulcer is consistent with pyoderma gangrenosum. The patient has been started on biologic agent yesterday per GI and she tolerated the medication well without any reactions. Her pain control has improved with changing her from fentanyl to [place]. The patient is ready for discharge to swing bed when available. Outpatient follow-up with GI was recommended.
[2020-05-05] MEDS: HYDROcodone/Acetaminophen 5/325 mg Tablet PO PRN ×3 (02:58→13:03)
[2020-05-05] MEDS: Sodium Chloride 0.9% 1,000 ML IV SCH (02:59)
[2020-05-05] MEDS: methylPREDNISolone Sod Succ 40 MG VIAL IVP SCH ×2 (05:28→13:04)
[2020-05-05] MEDS: Calcium Carbonate 600 MG + Vit D TAB PO SCH (08:57)
[2020-05-05] MEDS: Multivit, Therapeutic 1 TAB PO SCH (08:58)
[2020-05-05] MEDS: Cyanocobalamin (Vitamin B-12) 1,000 MCG TAB PO SCH (08:58)
[2020-05-05] MEDS: Folic Acid 1 MG TAB PO SCH (08:58)
[2020-05-05] MEDS: Bupropion 150 MG XL TAB PO SCH (08:58)
[2020-05-05] MEDS: Clobetasol 0.05% Cream 15 gm Tube TOP SCH (08:59)
[2020-05-05] MEDS ORDERED: Amlodipine 10 MG TAB PO SCH (09:00)
--- NOTE | 2020-05-05 10:18 | PDOC.DS.DS ---
Provider - Provider Date of Admission: 04/21/20 17:44 Date of Discharge: 05/05/20 Admitting Provider: Stacey Kellogg MD Primary Care Physician: Remberto Murphy MD Course - Hospital Course Hospital Course: This patient is a 64-year-old female with past medical history of hypertension, depression, migraines, esophageal stricture and pancreatic insufficiency who presented to the hospital with hematochezia and worsened dysphagia in addition to lower extremity wounds. CT scan of the abdomen revealed narrowing of a segment in the sigmoid colon with colitis. EGD was performed and was found to be normal. Colonoscopy showed scattered deep ulcers at 40 cm from the anorectal verge and confluent ulcerations 20 cm from the anal rectal verge in addition to severe diverticular disease. Biopsy confirmed chronic colitis consistent with Crohn's disease. The patient underwent amputation of the right great toe due to osteomyelitis and also underwent debridement of 6 x 5 cm necrotic wound in the dorsum of the foot. This ulcer is consistent with pyoderma gangrenosum. The patient has been started on biologic agent yesterday per GI and she tolerated the medication well without any reactions. Her pain control has improved with changing her from fentanyl to [place]. GI recommended the next dose of Inflectra 5 mg/kg given 2 weeks from now, then 6 weeks and then every week after that. Resuscitation Status: 04/21/20 22:14 Resuscitation Status Routine Resuscitation Status: FULL: Full Resuscitation - Labs Lab Results: 05/03/20 05:34 05/03/20 05:34 Microbiology - Entire Visit 04/30/20 10:06 Foot - Right Bacterial Culture - Preliminary 04/22/20 15:33 Foot - Right Bacterial Culture - Final 04/22/20 15:33 Foot - Right Anaerobic Culture - Final NO ANAEROBES ISOLATED IN 5 DAYS 04/21/20 15:10 Venous blood - Left Arm Blood Culture - Final NO GROWTH IN 5 DAYS 04/21/20 15:10 Venous blood - Right Hand Blood Culture - Final NO GROWTH IN 5 DAYS 04/22/20 15:33 Ankle - Left Bacterial Culture - Final 04/22/20 15:33 Ankle - Left Anaerobic Culture - Final 04/23/20 21:25 Stool - Liquid Rapid Parasite Screen - Final - Physical Exam Vitals: Vital Signs (12 hours) Temp Pulse Resp BP Pulse Ox 05/05/20 07:48 98.5 F 83 18 168/99 H 100 05/05/20 05:35 98 F 73 18 144/79 H 98 05/05/20 04:00 98.1 F 73 20 150/87 H 99 Weight Admit Weight 183 lb 8 oz Weight 183 lb 8 oz Physical Exam: The patient was seen and examined on the day of discharge. Problem - Problem (1) Crohn's disease Code(s): K50.90 - CROHN'S DISEASE, UNSPECIFIED, WITHOUT COMPLICATIONS Status: Acute (2) Pyoderma gangrenosum Code(s): L88 - PYODERMA GANGRENOSUM Status: Acute (3) HTN (hypertension) Code(s): I10 - ESSENTIAL (PRIMARY) HYPERTENSION Status: Acute Plan - Discharge Medications Prescriptions: predniSONE 20 mg PO BID-WM #10 tab Home Medications: Medication Instructions Recorded Confirmed Type Multivitamin [Daily Multiple 1 each PO DAILY 07/05/16 04/23/20 History Vitamin] Butalbital/Aspirin/Caffeine 1 tab PO DAILY PRN 04/28/20 04/28/20 History [[id number]-[id number]-Gybrl 50-325-40] Lipase/Protease/Amylase [Jessy Dr 1 cap PO PRN PRN 04/28/20 04/28/20 History 25,000 Unit Capsule] Lipase/Protease/Amylase [Jessy Eaton 2 cap PO TID-WM 04/28/20 04/28/20 History 25,000 Unit Capsule] Lorazepam [Ativan] 1 mg PO HS 04/28/20 04/28/20 History Metoprolol Tartrate [Lopressor] 12.5 mg PO BID 04/28/20 04/28/20 History BuPROPion XL [Wellbutrin XL] 150 mg PO DAILY tab 05/05/20 Rx HYDROcodone Bit/APAP 5/325 [[place]] 1 tab PO Q4HR PRN tab 05/05/20 Rx Pantoprazole [Protonix] 40 mg PO DAILY tab 05/05/20 Rx predniSONE 20 mg PO BID-WM #10 tab 05/05/20 Rx Allergies: morphine Allergy (Intermediate, Verified 07/05/16 12:11) PT STATES SHE HAD NIGHTMARES Sulfa (Sulfonamide Antibiotics) Allergy (Intermediate, Verified 07/05/16 12:11) CONSTIPATION/GI UPSET - Follow up Plan Referrals: Phil Shelton MD [Active] - 2-3 Weeks Remberto Murphy MD [Primary Care Provider] - Disposition: HOME Quality - Care Measures CORE MEASURES:: N/A
--- NOTE | 2020-05-05 10:55 | PRG ---
DATE OF SERVICE: SUBJECTIVE: Shakila Luna is doing well today. Her wounds look good. There is no infection. Her antibiotics have already been discontinued. I agree with Wound Care's recommendation to discontinue the wound VAC and do Promogran dressings every 2-3 days. She can wash the feet with soap and water in the shower or bath. I will see her as an outpatient in the next 3-4 weeks. I will see her as needed in this hospitalization. Please call as necessary. Job ID: [id number]
[2020-05-05 15:39] VITALS: BP 150/76; TEMP 97.9
--- NOTE | 2020-05-07 03:43 | PQF ---
Dear : Kisha Brennan Date 05/07/2020 Please exercise your independent, professional judgment in responding to the clarification form. Clinical indicators are provided on the bottom of this form for your review Can you please further clarify if Sepsis is ruled in or ruled out? Sepsis [ > ] Ruled in diagnosis [ ] Continue to treat [> ] Resolved [ ] Ruled out diagnosis [ ] Improving [ ] Cannot rule out diagnosis [ ] Other diagnosis [ ] Unable to determine In addition, please specify: Present on Admission (POA): [ > ] Yes [ ] No [ ] Unable to determine Physician Signature: Date/Time: For continuity of documentation, please document condition throughout progress notes and discharge summary. Thank You. To be completed by CDI/Coding staff for physician review: Present Clinical Indicators - Signs / Symptoms / Labs Results and Location in Medical Record [ x ] Sepsis OP report 12 pg.1 [ x ] Septic due to the fact that her temp is 100.6, RR 24 ED Provider pg.1 [ x ] VS: BP: 137/89, Pulse 98, RR: 24 , T: 100.6 ED Provider pg.2 [ x ] WBC: 8.6, 8.8, 5.7, 10.1, 7.6, 7.7, 5.2, 6.7 Laboratory [ x ] Bacterial culture: no anaerobes isolated in 5 days Microbiology [ x ] Blood culture no growth in 5 days Microbiology [ x ] Skin abscess and colitis Consult pg.[address] Moon Present Risk Factors Results and Location in Medical Record [ x ] Necrotizing infection OP report 12 pg.1 [ x ] Cellulitis H and P pg.3 [ x ] Bullous pemphigoid H and P pg.4 [ x ] 64 years old H and P pg.1 [ x ] Osteomyelitis Path report Present Treatments Results and Location in Medical Record [ x ] Amputation OP report 12 pg.1 [ x ] Debridement of necrotic wound OP report 04/22 pg.1 [ x ] IV Fluids MAR [ x ] Vancomycin 2gm IV MAR [ x ] Infectious Consult Dr. Moon [ x ] Zosyn 3.375gm IV MAR CDS/Appliances Sample Maker Signature: Simon Moffett Phone #: ext [phone] Date 05/07/2020 This is a permanent part of the Medical Record [facility]
--- NOTE | 2020-05-07 03:45 | PQF ---
Dear : Phil Shelton Date 05/07/2020 Please exercise your independent, professional judgment in responding to the clarification form. Clinical indicators are provided on the bottom of this form for your review Can you please further clarify the type and depth of debridement? Please check appropriate box(es): [ ] Excisional Debridement: Depth / layer: (deepest layer of debridement): [ ] Skin [ ] Subcutaneous [ ] Fascia [ ] Muscle [ ] Tendon [ ] Bone [ ] Non-excisional Debridement: (Removal by Brushing, brushing, chemical, or washing) Depth / layer: (deepest layer of debridement): [ ] Skin [ ] Subcutaneous [ ] Fascia [ ] Muscle [ ] Tendon [ ] Bone [ ] Other procedure, please specify [ ] Unable to determine Physician Signature: Date/Time: For continuity of documentation, please document condition throughout progress notes and discharge summary. Thank You. To be completed by CDI/Coding staff for physician review: Present Clinical Indicators - Signs / Symptoms / Labs Results and Location in Medical Record [ x ] Necrotic overlying skin debrided sharply unroofing a large area OP report pg.1 04/22 [ x ] Necrotic subcutaneous tissues debrided down the fascia OP report pg.1 04/22 [ x ] Debridement of 6x5 cm, wound, dorsum of foot, excising necrotic skin subcutaneous tissue OP report pg.1 04/22 [ x ] Debriding 4.5 to 5 cm diameter wound lateral malleolus area right foot necrotic skin OP report pg.1 04/22 [ x ] Debridement of 5 cm infected ulcerated wound left lateral malleolar area OP report pg.1 04/22 [ x ] Necrotic overlying skin debrided sharply OP report pg.1 04/22 Present Risk Factors Results and Location in Medical Record [ x ] Necrotizing infection both feet OP report pg.1 04/22 [ x ] Cellulitis H and P pg.4 [ x ] HTN H and P pg.4 [ x ] Bullous pemphigoid H and P pg.4 Present Treatments Results and Location in Medical Record [ x ] Surgery Consult Dr. Shelton [ x ] IV Fluids MAR [ x ] Debridement of feet OP report pg.1 12 [ x ] Amputation of right great toe OP report pg.1 04/22 CDS/Manager In Home Signature: Simon Moffett Phone #: ext [phone] Date 05/07/2020 This is a permanent part of the Medical Record [facility]
[2020-05-07 06:13] LABS: QuantiFERON-TB Gold Plus Negative (Negative)
[2020-05-22 13:16] LABS: Fungus Culture Final report (.)
== END 2020-05-05 15:35 | disposition swing bed (61) | DRG 853 ==
LOC: ERS 14:25 → ERHOLD 17:44 → T4-A 04-22 18:21
PROVIDERS: ADMIT Internal Medicine; ATTEND Internal Medicine
PROC: 0JBR0ZZ Excision of Left Foot Subcutaneous Tissue and Fascia, Open Approach (ICD-10-PCS; principal; 2020-04-22)
PROC: 0Y6M0Z9 Detachment at Right Foot, Partial 1st Ray, Open Approach (ICD-10-PCS; 2020-04-22)
PROC: 0JBQ0ZZ Excision of Right Foot Subcutaneous Tissue and Fascia, Open Approach (ICD-10-PCS; 2020-04-22)
PROC: 02HV33Z Insertion of Infusion Device into Superior Vena Cava, Percutaneous Approach (ICD-10-PCS; 2020-04-22)
PROC: 30233N1 Transfusion of Nonautologous Red Blood Cells into Peripheral Vein, Percutaneous Approach (ICD-10-PCS; 2020-04-22)
PROC: 0DJ08ZZ Inspection of Upper Intestinal Tract, Via Natural or Artificial Opening Endoscopic (ICD-10-PCS; 2020-04-23)
PROC: 0DBN8ZX Excision of Sigmoid Colon, Via Natural or Artificial Opening Endoscopic, Diagnostic (ICD-10-PCS; 2020-04-23)
PROC: 0DBE8ZX Excision of Large Intestine, Via Natural or Artificial Opening Endoscopic, Diagnostic (ICD-10-PCS; 2020-04-23)
PROC: 0H9MXZZ Drainage of Right Foot Skin, External Approach (ICD-10-PCS; 2020-04-30)
DX: A41.9 Sepsis, unspecified organism (principal); M72.6 Necrotizing fasciitis; M86.171 Other acute osteomyelitis, right ankle and foot; K50.111 Crohn's disease of large intestine with rectal bleeding; L88 Pyoderma gangrenosum; L12.0 Bullous pemphigoid; D62 Acute posthemorrhagic anemia; L03.116 Cellulitis of left lower limb; L03.115 Cellulitis of right lower limb; K55.1 Chronic vascular disorders of intestine; K57.32 Diverticulitis of large intestine without perforation or abscess without bleeding; K50.118 Crohn's disease of large intestine with other complication; Z20.828 Contact with and (suspected) exposure to other viral communicable diseases; F41.9 Anxiety disorder, unspecified; G43.909 Migraine, unspecified, not intractable, without status migrainosus; K86.81 Exocrine pancreatic insufficiency; R13.10 Dysphagia, unspecified; K21.00 Gastro-esophageal reflux disease with esophagitis, without bleeding; I10 Essential (primary) hypertension; M06.9 Rheumatoid arthritis, unspecified; D63.8 Anemia in other chronic diseases classified elsewhere; D50.9 Iron deficiency anemia, unspecified; E53.8 Deficiency of other specified B group vitamins; E66.9 Obesity, unspecified; Z68.34 Body mass index [BMI] 34.0-34.9, adult; L98.2 Febrile neutrophilic dermatosis [Sweet]; E87.6 Hypokalemia; Z90.49 Acquired absence of other specified parts of digestive tract; Z88.5 Allergy status to narcotic agent; Z88.2 Allergy status to sulfonamides; Z79.52 Long term (current) use of systemic steroids; Z79.899 Other long term (current) drug therapy
CPT/HCPCS: 36415; 36430; 71045; 74177; 80048; 80053; 82378; 82607; 82728; 82746; 83520; 83540; 83550; 83605; 83735; 84100; 85025; 85652; 86140; 86160; 86200; 86225; 86256; 86480; 86706; 86850; 86900; 86901; 87070; 87102; 87177; 87205; 87206; 87328; 87329; 87337; 87340; 87497; 87635; 88305; 88311; 88342; 93005; 93306; 96365; 96366; 96375; 96376; C1751; C9113; J1170; J2250; J2270; J2405; J2543; J2550; J2704; J2920; J3010; J3370; J3490; J7030; J7050; P9016; Q5103; Q9967; U0003

== ENCOUNTER 2020-05-20 12:42 | Day surgery (SDC) | payer MEDICARE, OTHER ==
[~2020-05-20 12:42] MED LIST: Acetaminophen 500 MG TAB PO PRN; INFLIXIMAB DYYB IV SCH; SODIUM CHLORIDE 0.9% IV SCH; diphenhydrAMINE 25 MG CAP PO PRN
[2020-05-20] MEDS ORDERED: Sodium Chloride 0.9% 20 ML ONE (12:43)
== END 2020-05-20 16:24 | disposition home or self-care (01) ==
LOC: ONC/OP 12:42
PROVIDERS: ATTEND Internal Medicine Gastroenterology
DX: K50.90 Crohn's disease, unspecified, without complications (principal); Z88.2 Allergy status to sulfonamides; Z88.5 Allergy status to narcotic agent; Z91.011 Allergy to milk products
CPT/HCPCS: 96413; 96415; J7050; Q0163; Q5103

== ENCOUNTER 2020-06-17 11:18 | Day surgery (SDC) | payer MEDICARE, OTHER ==
[2020-06-17] MEDS ORDERED: Sodium Chloride 0.9% 20 ML ONE (11:29)
[2020-06-17 11:36] VITALS: BP 151/70; TEMP 98.2
== END 2020-06-17 14:52 | disposition home or self-care (01) ==
LOC: ONC/OP 11:18
PROVIDERS: ATTEND Internal Medicine Gastroenterology
DX: K50.90 Crohn's disease, unspecified, without complications (principal); Z88.2 Allergy status to sulfonamides; Z88.5 Allergy status to narcotic agent
CPT/HCPCS: 96413; 96415; J7050; Q0163; Q5103

== ENCOUNTER 2020-06-19 10:14 | Outpatient (CLI) | payer MEDICARE, OTHER ==
[2020-06-19] MEDS ORDERED: Iopamidol-370 76% 500 ML 1 ML ONE (13:33)
== END 2020-06-19 10:15 | disposition home or self-care (01) ==
LOC: BICCT 10:14
PROVIDERS: ATTEND Physician Assistant Medical
DX: K50.90 Crohn's disease, unspecified, without complications (principal); E27.8 Other specified disorders of adrenal gland; N26.1 Atrophy of kidney (terminal)
CPT/HCPCS: 74170; 82565; Q9967

== ENCOUNTER 2020-08-12 11:56 | Day surgery (SDC) | payer MEDICARE, OTHER ==
[~2020-08-12 11:56] MED LIST changes: -Acetaminophen 500 MG TAB PO PRN; +Acetaminophen 500 MG TAB PO SCH; -diphenhydrAMINE 25 MG CAP PO PRN; +diphenhydrAMINE 25 MG CAP PO SCH
[2020-08-12] MEDS ORDERED: Sodium Chloride 0.9% 20 ML ONE (12:02)
[2020-08-12 12:12] VITALS: BP 169/73; TEMP 97.8
== END 2020-08-12 15:19 | disposition home or self-care (01) ==
LOC: ONC/OP 11:56
PROVIDERS: ATTEND Internal Medicine Gastroenterology
DX: K50.90 Crohn's disease, unspecified, without complications (principal); Z88.2 Allergy status to sulfonamides; Z88.5 Allergy status to narcotic agent
CPT/HCPCS: 96413; 96415; J7050; Q0163; Q5103

== ENCOUNTER 2020-10-07 12:06 | Day surgery (SDC) | payer MEDICARE, OTHER ==
[2020-10-07] MEDS ORDERED: Sodium Chloride 0.9% 20 ML ONE (12:21)
[2020-10-07 12:27] VITALS: BP 131/63
== END 2020-10-07 16:00 | disposition home or self-care (01) ==
LOC: ONC/OP 12:06
PROVIDERS: ATTEND Internal Medicine Gastroenterology
DX: K50.90 Crohn's disease, unspecified, without complications (principal); Z88.2 Allergy status to sulfonamides; Z88.5 Allergy status to narcotic agent; Z91.011 Allergy to milk products
CPT/HCPCS: 96413; 96415; J7050; Q0163; Q5103

== ENCOUNTER → 2020-12-11 | Day surgery (SDC) | payer MEDICARE, OTHER | LOC: ONC/OP 09:36 | PROVIDERS: ATTEND Internal Medicine Gastroenterology | DX: K50.90 Crohn's disease, unspecified, without complications (principal); Z88.2 Allergy status to sulfonamides; Z88.5 Allergy status to narcotic agent | CPT/HCPCS: 96413; J3380; J7050 ==

== ENCOUNTER 2021-01-08 | Day surgery (SDC) | payer MEDICARE, OTHER | END 2021-01-08 13:00 | disposition home or self-care (01) ==

== ENCOUNTER 2021-03-11 13:05 | Day surgery (SDC) | payer MEDICARE, OTHER ==
[~2021-03-11 13:05] MED LIST changes: +Acetaminophen 500 MG TAB PO PRN; -Acetaminophen 500 MG TAB PO SCH; -INFLIXIMAB DYYB IV SCH; -SODIUM CHLORIDE 0.9% IV SCH; +Vedolizumab 300 MG in Sodium Chloride 0.9% 250 ML 250 ML IVPB SCH; -diphenhydrAMINE 25 MG CAP PO SCH
[2021-03-11 13:29] VITALS: BP 125/62; TEMP 98.3
[2021-03-11] MEDS ORDERED: Sodium Chloride 0.9% 20 ML ONE (13:35)
== END 2021-03-11 15:12 | disposition home or self-care (01) ==
LOC: ONC/OP 13:05
PROVIDERS: ATTEND Internal Medicine Gastroenterology
DX: K50.90 Crohn's disease, unspecified, without complications (principal); Z88.2 Allergy status to sulfonamides; Z88.5 Allergy status to narcotic agent
CPT/HCPCS: 96413; J3380; J7050

== ENCOUNTER 2021-05-08 12:09 | Day surgery (SDC) | payer MEDICARE, OTHER ==
[2021-05-08] MEDS ORDERED: Sodium Chloride 0.9% 10 ML ONE ×2 (12:19)
[2021-05-08 14:42] VITALS: BP 135/61; TEMP 98.2
== END 2021-05-08 14:43 | disposition home or self-care (01) ==
LOC: ONC/OP 12:09
PROVIDERS: ATTEND Internal Medicine Gastroenterology
DX: K50.90 Crohn's disease, unspecified, without complications (principal); Z88.2 Allergy status to sulfonamides; Z88.5 Allergy status to narcotic agent
CPT/HCPCS: 96413; J3380; J7050

== ENCOUNTER 2021-05-11 08:38 | Outpatient (CLI) | payer MEDICARE, OTHER | END 2021-05-11 08:39 | disposition home or self-care (01) | LOC: CT 08:38 | PROVIDERS: ATTEND Internal Medicine Gastroenterology | DX: K52.9 Noninfective gastroenteritis and colitis, unspecified (principal); K63.89 Other specified diseases of intestine; N26.1 Atrophy of kidney (terminal); D25.9 Leiomyoma of uterus, unspecified; Z90.49 Acquired absence of other specified parts of digestive tract | CPT/HCPCS: 74174; 82565 ==

== ENCOUNTER 2021-06-10 10:32 | Day surgery (SDC) | payer MEDICARE, OTHER ==
[~2021-06-10 10:32] MED LIST changes: +Ustekinumab 390 MG in Sodium Chloride 0.9% 250 ML 172 ML IV SCH; -Vedolizumab 300 MG in Sodium Chloride 0.9% 250 ML 250 ML IVPB SCH; +diphenhydrAMINE 25 MG CAP PO PRN
[2021-06-10] MEDS ORDERED: Sodium Chloride 0.9% 10 ML ONE ×2 (11:04)
[2021-06-10] MEDS ORDERED: Acetaminophen 500 MG TAB ONE ×2 (11:18)
[2021-06-10] MEDS ORDERED: diphenhydrAMINE 25 MG CAP ONE (11:18)
== END 2021-06-10 17:29 | disposition home or self-care (01) ==
LOC: ONC/OP 10:32
PROVIDERS: ATTEND Internal Medicine Gastroenterology
DX: K50.90 Crohn's disease, unspecified, without complications (principal); Z88.2 Allergy status to sulfonamides; Z88.5 Allergy status to narcotic agent
CPT/HCPCS: 96413; J3358; J7050